=== PATIENT | female | born 1960 | race Caucasian/White ===

== ENCOUNTER → 2018-05-30 12:39 | Outpatient (CLI) | payer OTHER, SELFPAY ==
--- NOTE | 2018-05-30 12:53 | MM_ITS ---
MM Dig screening mamm BI w/CAD ORDERING PHYSICIAN : Prachi Brownlee PATIENT AGE: 57 years GENDER: Female COMPARISON: March 2016, April 2017, March 2015 INDICATION: ITS.REASON: SCREENING no hormones. No new complaints. Noncontributory family history. Previous stereotactic biopsy . Previous benign excisional biopsies right breast 11:00 TECHNIQUE: Standard CC and MLO images were obtained. R2 CAD reviewed. Axillary cc view both breast included FINDINGS: Moderately dense heterogeneous breast pattern, only slightly decreases sensitivity of mammography . With slightly nodular fibroglandular pattern on right appears stable. No significant change since studies dating back to 2013 RIGHT BREAST: . No significant new findings follow up one year recommended . Minimal density at the lateral left breast on cc view is stable LEFT BREAST:. . Focal density retroareolar region on today's MLO view appears to dissipates on other views and less concerning. Given this and Appearance on previous films less concerning can be followed as I believe is merely summation shadow on MLO view.. The other views today appear stable and unremarkable. IMPRESSION: ... Moderately dense breast with no significant new findings. Bilateral follow-up within one year recommended and should be be encouraged BI-RADS Category: 2 Benign Finding(s) RECOMMENDED FOLLOW-UP: 1YR 1 YEAR FOLLOW-UP (A letter has been sent to the patient regarding results of the study.)
== END ==
PROVIDERS: Family Provider Physician Assistant; PCP Family Medicine; Visit Provider Nurse Practitioner Family
DX: Z12.31 Encounter for screening mammogram for malignant neoplasm of breast (principal)
CPT/HCPCS: 77067

== ENCOUNTER → 2019-07-24 07:47 | Outpatient (CLI) | payer OTHER, SELFPAY ==
--- NOTE | 2019-07-24 07:51 | MM_ITS ---
PROCEDURE: MM DIG SCREENING MAMM BI W/CAD CLINICAL INDICATION: SCREENING There is no personal or family history of breast cancer. There has been previous biopsies on each breast for benign disease. COMPARISON: MAMMO SCREENING DIGITAL TOMOSYNTHESIS BILATERAL W CAD from 04/12/2016 MAMMO SCREENING DIGITAL TOMOSYNTHESIS BILATERAL W CAD from 05/16/2017 [facility] MM Dig screening mamm BI w/CAD from 05/30/2018 TECHNIQUE: Standard CC and MLO images were obtained. R2 CAD reviewed. FINDINGS: There is a diffusely dense and heterogenic parenchymal pattern somewhat lessening the sensitivity of mammography. The findings are fairly symmetrical and bilateral. There is a mole marker right breast and there are couple of benign-appearing calcifications right breast. There is a biopsy clip left breast. There is no new or suspicious lesion in either breast and no suspicious microcalcifications. IMPRESSION: Diffusely dense and heterogenic parenchymal pattern with no suspicious lesions seen BI-RAD Category: 2 Benign Finding(s) FOLLOW-UP: 1YR 1 Year Follow-up (A letter has been sent to the patient regarding results of the study.) Dictated by: Dr. Mayo Proctor MD 07/25/2019 14:[address] Mayo Proctor MD in [place] 07/25/2019 14:12
== END ==
PROVIDERS: PCP Family Medicine; Visit Provider Nurse Practitioner Obstetrics & Gynecology
DX: Z12.31 Encounter for screening mammogram for malignant neoplasm of breast (principal)
CPT/HCPCS: 77067

== ENCOUNTER → 2022-08-16 14:40 | Outpatient (CLI) | payer SELFPAY ==
--- NOTE | 2022-08-16 14:43 | MM_ITS ---
PROCEDURE INFORMATION: Exam: MG Bilateral Screening 3D Mammography Exam date and time: 08/16/2022 2:41 PM Age: 61 years old Clinical indication: Screening examination TECHNIQUE: Imaging protocol: Bilateral Screening tomosynthesis and 2D mammography including computer-aided detection (CAD) when performed. COMPARISON: 1. MG MM DIG SCREENING MAMM BI W/CAD 07/24/2019 8:14 AM 2. MG [facility] MM Dig screening mamm BI w/CAD 05/30/2018 1:06 PM FINDINGS: MAMMOGRAPHY: Breast composition: The breasts are heterogeneously dense, which may obscure small masses. Mass: None. Architectural distortion: None. Calcifications: No suspicious calcifications. Asymmetric density: None. Skin thickening: None. Axillary adenopathy: None. IMPRESSION: No mammographic evidence of malignancy. Annual screening is recommended unless otherwise clinically indicated. ASSESSMENT: BI-RADS Category 1: Negative
== END ==
LOC: RAD 14:40
PROVIDERS: PCP Nurse Practitioner Family; Visit Provider Nurse Practitioner Family
DX: Z12.31 Encounter for screening mammogram for malignant neoplasm of breast (principal)
CPT/HCPCS: 77063; 77067

== ENCOUNTER 2022-09-08 12:12 | Inpatient (IN) | payer OTHER, SELFPAY ==
[2022-09-08] VITALS (10 sets, daily range): BP systolic 92–127; BP diastolic 48–69; PULSE 76–112; RESP 16–26; TEMP 36.7–37.8; O2SAT 92–98; BMI 21.0
--- NOTE | 2022-09-08 12:03 | ECG_ITS ---
APPROVED REPORT Exam: Resting ECG HR:105 bpm ECG Measurements Heart Rate 105 AXES MT 138 P 51 QRSd 85 QRS 23 QT 302 T 35 QTc 363 Conclusion SINUS TACHYCARDIA ABNORMAL RHYTHM ECG INTERPRETATION BASED ON A DEFAULT AGE OF 40 YEARS UNCONFIRMED REPORT Electronically signed by : Romario Laguna MD 09/08/2022 16:02:58
--- NOTE | 2022-09-08 12:25 | XR_ITS ---
FINAL REPORT CLINICAL HISTORY: soa/chest tightness COMPARISON: 01/31/2017 FINDINGS: PA and lateral views of the chest were obtained. The cardiac and mediastinal silhouettes are within normal limits. There are new bilateral interstitial opacities which could represent interstitial pulmonary edema or interstitial pneumonia. There is no pleural effusion or pneumothorax. IMPRESSION: Bilateral interstitial opacities could represent interstitial pulmonary edema or interstitial pneumonia. Reviewed, Interpreted and Dictated by Jolanta Aldrich MD Transcribed by Camila Shepard Authenticated and [facility]
[2022-09-08 12:33] LABS: Basophils # 0.3 K/mm3 (0-0.2); Basophils % 1.1 % (0.1-2.0); Eosinophils # 0.2 K/mm3 (0.0-0.4); Hematocrit 37.5 % (37.0-47.0); Hemoglobin 13.1 g/dL (12.2-16.2); Lymphocytes # 1.1 K/mm3 (0.7-4.5); Lymphocytes % 4.5 % (10-50); Mean Corpuscular Hemoglobin 32.4 pg (27.0-31.2); Mean Corpuscular Volume 92.7 fl (81-99); Mean Platelet Volume 8.6 fl (7.4-10.4); Monocytes # 1.3 K/mm3 (0.1-1.0); Monocytes % 5.6 % (1.7-9.3); Neutrophils # 20.7 K/mm3 (1.8-7.8); Neutrophils % 87.8 % (37.0-80.0); Platelet Count 428 K/mm3 (142-424); Red Blood Count 4.04 M/mm3 (4.20-5.40); Red Cell Distribution Width 12.7 % (11.5-17.5); White Blood Count 23.6 K/mm3 (4.8-10.8)
[2022-09-08 12:34] LABS: Chloride 101 mmol/L (98-107); Potassium 3.8 mmoL/L (3.5-5.1); Sodium 136 mmol/L (136-145)
[2022-09-08 12:34] LABS: Coronavirus 19, PCR Not Detected (NotDetected); Influenza A, PCR Not Detected (NotDetected); Influenza B, PCR Not Detected (NotDetected)
[2022-09-08 12:37] LABS: Blood Urea Nitrogen 8 mg/dl (7-17); Creatinine Clearance Estimated 50 mL/min (50-200); Estimated Glomerular Filt Rate 101 ml/min (>60); GFR (African American) 123 ML/MIN (>60)
[2022-09-08 12:38] LABS: Anion Gap 8.8 mEq/L (5-15); Calcium 9.1 mg/dl (8.4-10.2); Carbon Dioxide 30 mmol/L (22.0-30.0); Glucose 126 mg/dl (74-100); MANUAL DIFFERENTIAL MANUAL DIFFERENTIAL (MANUAL DIFF)
--- NOTE | 2022-09-08 12:42 | PC.NURSE ---
pt back from rad
[2022-09-08 12:47] LABS: Lactic Acid 1.1 mmol/L (0.7-2.1)
[2022-09-08 12:52] LABS: Troponin I < 0.01 ng/ml (0.00-0.034)
--- NOTE | 2022-09-08 13:08 | HMH.EDGENADL ---
Discharge Plan Disposition Patient Disposition: Admitted as Observation Condition: Fair Clinical Impressions Clinical Impression: Bilateral pneumonia, Sepsis Discharge ED Provider: Fady Cedillo General Adult HPI General Chief complaint: Chest Pain Stated complaint: soa Time Seen by Provider: 09/08/22 12:50 Mode of Arrival: Ambulatory Source of Information: Patient Limitations: No Limitations Description of Symptoms (Recalled from ER Triage Doc. by RN): c/o soa with chest tightness and no energy for 2 weeks. States that she has been sick for 2 weeks and tx for bronchitis. Prior to arrival pt started coughing and got soa with chest tightness. Chest tightness has resolved. History of Present Illness HPI narrative: Patient states she has been sick for 2 weeks. She says that she saw her primary care provider 08/22 who diagnosed her with pneumonia. No chest x-ray performed. She was tested for flu, COVID, and RSV and was negative. She was treated with a Z-Mauro, albuterol inhaler, steroid shot. Initially she improved but has now gotten worse again. States she feels terrible, feels like a truck has hit her. States she has not been as sick in 10 years. She has a cough, shortness of breath, and developed chest pain today with coughing. She has a fever. She denies rhinorrhea or sore throat. Denies vomiting or diarrhea. No current body aches, but had body aches a couple of weeks ago when the illness started. She is a non-smoker. No chronic heart or lung problems. 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 Related Data Home Medications Medication Instructions Recorded Confirmed albuterol sulfate 90 mcg/actuation 2 puff inhalation Q4HP PRN 09/08/22 09/08/22 aerosol inhaler Shortness Of Breath bupropion HCl 150 mg 24 hr tablet, 150 mg PO DAILY MOOD 09/08/22 09/08/22 extended release Allergies Allergy/AdvReac Type Severity Reaction Status Date / Time No Known Allergies Allergy Unverified 09/08/22 13:01 [facility] Disclaimer: The information contained in this section may have been updated after the patient was seen, as this information can be updated by other users. Medical History (Updated 09/08/22 @ 14:16 by Ricardo Lizarraga MD) Generalized anxiety disorder Surgical History (Updated 09/08/22 @ 14:16 by Ricardo Lizarraga MD) History of arthroscopy of left knee History of bilateral tubal ligation History of colonoscopy Family History (Updated 09/08/22 @ 14:17 by Ricardo Lizarraga MD) Mother Lung cancer Father Coronary artery disease Diabetes Social History (Updated 09/08/22 @ 14:18 by Ricardo Lizarraga MD) Smoking Status: Never smoker alcohol intake: never current occupational status: employed and other Travel in the last 8 weeks: [place] the [place] household members: spouse housing: house marital status: number of children: 3 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 [employer] abrahan/scientology: Confucianism ROS Obtained: Yes Systems reviewed as appropriate & no additional complaints except as documented Constitutional Constitutional: Denies body ache, Reports fever(s), Denies headache(s) and Denies weakness ENT Ears, Nose, Mouth, and Throat: Denies headache(s), Denies nasal discharge and Denies sore throat Cardiovascular Cardiovascular: Reports chest pain Respiratory Respiratory: Reports shortness of breath and Reports cough Gastrointestinal Gastrointestingal: Denies abdominal pain, constipation, diarrhea or vomiting Genitourinary Female Genitourinary: Denies difficulty voiding, Denies dysuria and Denies flank pain Musculoskeletal Musculoskeletal: Denies numbness Neurologic Neurologic: Denies headache(s), Denies numbness and Denies weakness Physical Exam General General appearance: alert and in no apparent distress Head Head exam: atraumatic and normocephalic Eye
[2022-09-08 13:29] LABS: Eosinophils % 1 % (0-3); Lymphocytes % 9 % (10-50); Monocytes % 6 % (2-9); Neutrophils % 84 % (42-76); Platelet Estimate Slight Increase; RBC Morphology Normal; Total Cells Counted 100
--- NOTE | 2022-09-08 13:54 | HMH.PHAINT1 ---
Pharmacy Intervention Comments: MEDICATION RECONCILIATION COMPLETED ON PATIENT USING EXTERNAL FILL HISTORY FROM PHARMACY. -JOBY WORTHY, JACKD
--- NOTE | 2022-09-08 14:05 | PC.NURSE ---
pt in bed resting, nothing was needed at this time, family in room
[2022-09-08 14:10] LABS: Magnesium 1.9 mg/dl (1.6-2.3)
--- NOTE | 2022-09-08 14:11 | EXP.HP ---
History of Present Illness *Admission Date: 09/08/22 *Reason for visit:: Chief complaint: Shortness of air *History of present illness: This is a 62-year-old female that presents to [facility] emergency department with concerns of shortness of air over several days. She reports 2 weeks ago seen her PCP with a cough and treated with azithromycin for presumed pneumonia. After her antibiotic therapy she started feeling well but over the last week she has identified increased cough with initial purulent production but now it is nonproductive. She has identified no associated hemoptysis, nausea, vomiting or diarrhea. She has not identified any rashes or mental status changes. She reports over the last 48 hours increasing cough with coughing spasms causing intermittent chest pain with coughing. She reports the pain resolves after her coughing improves. She has identified shortness of air with exertion especially when going up steps. She describes associated subjective fever and chills. In the ED her presenting temperature was 100.1 with tachypnea and tachycardia. Her CBC identifies a leukocytoses and her chest x-ray is consistent with an infiltrate. Blood cultures have been acquired and she has been started on broad-spectrum antibiotic therapy. Her ECG identifies sinus tachycardia and her troponin is negative. [facility] Medical History (Updated 09/08/22 @ 14:16 by Ricardo Lizarraga MD) Generalized anxiety disorder Surgical History (Updated 09/08/22 @ 14:16 by Ricardo Lizarraga MD) History of arthroscopy of left knee History of bilateral tubal ligation History of colonoscopy Family History (Updated 09/08/22 @ 14:17 by Ricardo Lizarraga MD) Mother Lung cancer Father Coronary artery disease Diabetes Social History (Updated 09/08/22 @ 14:18 by Ricardo Lizarraga MD) Smoking Status: Never smoker alcohol intake: never current occupational status: employed and other Travel in the last 8 weeks: [place] the [place] household members: spouse housing: house marital status: number of children: 3 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 [employer] abrahan/orthodoxy: Zoroastrian Review of Systems Review of Systems Review of systems:: pertinent systems reviewed and negative unless documented below Constitutional Constitutional: Reports chills and Reports fever(s) *Cardiovascular Cardiovascular: Reports dyspnea and Reports dyspnea on exertion *Respiratory Respiratory: Reports chest congestion, Reports cough, Reports dyspnea, Reports dyspnea on exertion and Denies hemoptysis *Gastrointestinal Gastrointestinal: Denies nausea and Denies vomiting *Musculoskeletal Musculoskeletal: Denies numbness *Neurologic Neurologic: Denies numbness Meds Home Medications and Allergies Home Medications Medication Instructions Recorded Confirmed Type albuterol sulfate 90 mcg/actuation 2 puff inhalation Q4HP PRN 09/08/22 09/08/22 History aerosol inhaler Shortness Of Breath bupropion HCl 150 mg 24 hr tablet, 150 mg PO DAILY MOOD 09/08/22 09/08/22 History extended release New Prescriptions to Start Prescriptions: Allergies Allergy/AdvReac Type Severity Reaction Status Date / Time No Known Allergies Allergy Unverified 09/08/22 13:01 Exam Data for Last 24 hours Vital signs and Labs for Last 24 Hours: Temp Pulse Resp BP Pulse Ox 100.1 F H 107 H 26 H 121/69 96 09/08/22 12:12 09/08/22 12:12 09/08/22 12:12 09/08/22 12:12 09/08/22 12:12 Laboratory Results - last 24 hr 09/08/22 12:15: SARS-CoV-2 (PCR) Not detected, Influenza A Untype (PCR) Not detected, Influenza Type B (PCR) Not detected 09/08/22 12:19: WBC 23.6 H*, RBC 4.04 L, Hgb 13.1, Hct 37.5, MCV 92.7, MCH 32.4 H, MCHC 35.0, RDW 12.7, Plt Count 428 H, MPV 8.6, Neut % (Auto) 87.8 H, Lymph % (Auto) 4.5 L, [place] % (Auto) 5.6, Eos % (Auto) 1.0, Baso % (Auto) 1.1, Neut # (Auto) 20.7 H, Lym
--- NOTE | 2022-09-08 14:47 | PC.NURSE ---
pt in bed sleeping, nothing needed at this time
--- NOTE | 2022-09-08 14:51 | PC.NURSE ---
report called to Blanca PACHECO
--- NOTE | 2022-09-08 14:55 | PC.NURSE ---
patient came to floor by wheelchair from ED
--- NOTE | 2022-09-08 15:52 | PC.NURSE ---
tech note; notified nurse of low blood pressure for 1600 vital signs.
[2022-09-08 16:28] LABS: Troponin I < 0.01 ng/ml (0.00-0.034)
--- NOTE | 2022-09-08 19:05 | PC.NURSE ---
notified nedra about pt's manual bp 92/52. 500 ml ivf bolus ordered.
[2022-09-08 19:36] LABS: Troponin I < 0.01 ng/ml (0.00-0.034)
[2022-09-09] VITALS: BP 98/48; PULSE 74; RESP 16; TEMP 36.9; O2SAT 99
[2022-09-09 04:00] VITALS: BP 112/60; PULSE 80; RESP 24; TEMP 37; O2SAT 94; BMI 20.5
--- NOTE | 2022-09-09 05:08 | PC.NURSE ---
NO ACUTE CHANGES SINCE PREVIOUS ASSESSMENT. HAS RESTED WELL THIS SHIFT. LUNG SOUNDS REMAIN DIMINISHED WITH FINE CRACKLES. REMAINS ON 2L NASAL CANNULA AND IS TOLERATING WELL. PT'S BP HAS BEEN SOFT THIS SHIFT AND PT HAS RECEIVED TWO 500ML BOLUSES. TOLERATED WELL. BP IS NOW 112/60. NO C/O PIAN, N/V/D, OR SOB THIS SHIFT.
[2022-09-09 05:43] LABS: Microscopic, Urine URINE MICROSCOPIC (MICROSCOPIC)
[2022-09-09 05:44] LABS: Appearance,Urine CLEAR (Clear); Bilirubin,Urine Negative (Negative); Blood, Urine Negative (Negative); Color,Urine YELLOW (Yellow); Glucose,Urine (UA) Negative (Negative); Ketones,Urine Negative (Negative); Leukocyte Esterase,Urine TRACE (Negative); Nitrate,Urine Negative (Negative); Protein,Urine Negative (Negative); Specific Gravity, Urine 1.025 (1.005-1.030); Urobilinogen,Urine 0.2 EU/dl (0.2)
[2022-09-09 05:48] LABS: Squamous Epithelial Cell,Urine Occasional #/hpf (0-5)
[2022-09-09 06:33] VITALS: PULSE 85; PULSE 87; O2SAT 98
[2022-09-09 07:26] LABS: Basophils # 0.1 K/mm3 (0-0.2); Basophils % 2.3 % (0.1-2.0); Eosinophils # 0.1 K/mm3 (0.0-0.4); Eosinophils % 1.4 % (0.1-12.0); Lymphocytes # 2.1 K/mm3 (0.7-4.5); Lymphocytes % 35.1 % (10-50); Mean Corpuscular HGB Conc 31.9 g/dL (31.8-35.4); Mean Corpuscular Hemoglobin 30.6 pg (27.0-31.2); Mean Platelet Volume 8.7 fl (7.4-10.4); Monocytes # 0.3 K/mm3 (0.1-1.0); Monocytes % 5.6 % (1.7-9.3); Neutrophils # 3.3 K/mm3 (1.8-7.8); Neutrophils % 55.6 % (37.0-80.0); Platelet Count 324 K/mm3 (142-424); Red Blood Count 3.54 M/mm3 (4.20-5.40); Red Cell Distribution Width 12.5 % (11.5-17.5)
[2022-09-09 07:34] LABS: Anion Gap 10.6 mEq/L (5-15); Blood Urea Nitrogen 6 mg/dl (7-17); Calcium 8.3 mg/dl (8.4-10.2); Carbon Dioxide 25 mmol/L (22.0-30.0); Chloride 109 mmol/L (98-107); Creatinine Clearance Estimated 48 mL/min (50-200); Estimated Glomerular Filt Rate 125 ml/min (>60); GFR (African American) 151 ML/MIN (>60); Glucose 122 mg/dl (74-100); Potassium 3.6 mmoL/L (3.5-5.1); Sodium 141 mmol/L (136-145)
[2022-09-09 07:51] LABS: Procalcitonin 0.211 ng/mL (0.0-2.0)
[2022-09-09 07:54] LABS: Hemoglobin 10.9 g/dL (12.2-16.2)
[2022-09-09 08:00] VITALS: BP 100/47; PULSE 111; RESP 18; TEMP 36.6; O2SAT 92
--- NOTE | 2022-09-09 08:42 | EXP.DC.SUM ---
General Admission date:: 09/08/22 Discharge date: 09/09/22 HPI HPI HPI: This is a 62-year-old female that presents to [facility] emergency department with concerns of shortness of air over several days. She reports 2 weeks ago seen her PCP with a cough and treated with azithromycin for presumed pneumonia. After her antibiotic therapy she started feeling well but over the last week she has identified increased cough with initial purulent production but now it is nonproductive. She has identified no associated hemoptysis, nausea, vomiting or diarrhea. She has not identified any rashes or mental status changes. She reports over the last 48 hours increasing cough with coughing spasms causing intermittent chest pain with coughing. She reports the pain resolves after her coughing improves. She has identified shortness of air with exertion especially when going up steps. She describes associated subjective fever and chills. In the ED her presenting temperature was 100.1 with tachypnea and tachycardia. Her CBC identifies a leukocytoses and her chest x-ray is consistent with an infiltrate. Blood cultures have been acquired and she has been started on broad-spectrum antibiotic therapy. Her ECG identifies sinus tachycardia and her troponin is negative. Hospital Course Hospital Course Hospital Course: The patient was admitted to the medical floor with oxygen supplementation to maintain appropriate oxygen saturations. Blood cultures were acquired and she was maintained on IV antibiotic coverage. Her laboratory studies and inflammatory markers were trended. Her CBC identified improved leukocytoses with a normal white blood cell count on discharge. Her procalcitonin on discharge was normal. She saturated appropriately on room air and identified significant improvement. She inquired about discharge home. We will discharge her home on oral antibiotics and she is instructed to follow-up with her PCP in 1 week. Exam Data for Last 24 hours Vital signs and Labs for Last 24 Hours: Temp Pulse Resp BP Pulse Ox 97.8 F 111 H 18 100/47 L 92 L 09/09/22 08:00 09/09/22 08:00 09/09/22 08:00 09/09/22 08:00 09/09/22 08:00 Laboratory Results - last 24 hr 09/08/22 12:15: SARS-CoV-2 (PCR) Not detected, Influenza A Untype (PCR) Not detected, Influenza Type B (PCR) Not detected 09/08/22 12:19: WBC 23.6 H*, RBC 4.04 L, Hgb 13.1, Hct 37.5, MCV 92.7, MCH 32.4 H, MCHC 35.0, RDW 12.7, Plt Count 428 H, MPV 8.6, Neut % (Auto) 87.8 H, Lymph % (Auto) 4.5 L, [place] % (Auto) 5.6, Eos % (Auto) 1.0, Baso % (Auto) 1.1, Neut # (Auto) 20.7 H, Lymph # (Auto) 1.1, [place] # (Auto) 1.3 H, Eos # (Auto) 0.2, Baso # (Auto) 0.3 H, Total Counted 100, Neutrophils % (Manual) 84 H, Lymphocytes % (Manual) 9 L, Monocytes % (Manual) 6, Eosinophils % (Manual) 1, Platelet Estimate Slight increase, RBC Morphology Normal 09/08/22 12:19: Sodium 136, Potassium 3.8, Chloride 101, Carbon Dioxide 30, Anion Gap 8.8, BUN 8, Creatinine 0.60, Estimated Creat Clear 50, Estimated GFR 101, Est GFR ( Amer) 123, Glucose 126 H, Calcium 9.1, Troponin I < 0.01 09/08/22 12:19: Lactate 1.1 09/08/22 12:19: Magnesium 1.9 09/08/22 15:50: Troponin I < 0.01 09/08/22 18:39: Troponin I < 0.01 09/09/22 05:35: Urine Color Yellow, Urine Appearance Clear, Urine pH 6.0, Ur Specific [place] 1.025, Urine Protein Negative, Urine Glucose (UA) Negative, Urine Ketones Negative, Urine Blood Negative, Urine Nitrate Negative, Urine Bilirubin Negative, Urine Urobilinogen 0.2, Ur Leukocyte Esterase Trace, Urine WBC 10-20, Ur Squamous Epith Cells Occasional 09/09/22 07:18: WBC 6.0 D, RBC 3.54 L, Hgb 10.9 L D, Hct 34.0 L, MCV 96.0, MCH 30.6, MCHC 31.9, RDW 12.5, Plt Count 324, MPV 8.7, Neut % (Auto) 55.6, Lymph % (Auto) 35.1, [place] % (Auto) 5.6, Eos % (Auto) 1.4, Baso % (Auto) 2.3 H, Neut # (Auto) 3.3, Lymph # (Auto) 2.1, [place] # (Auto) 0.3, Eos # (Auto) 0.1, Baso # (Auto) 0.1 09/09/22 07:18: Sodium 141, Potassium 3.6, Chlo
--- NOTE | 2022-09-11 13:32 | CARE MANAGER ---
Contacted patient related to hospital discharge. She states she is doing better. She picked up her medication and made a follow up appointment. Denies questions or concerns. JUNIOR Wilde
[2022-09-12 18:04] LABS: Legionella pneumophila Urinary Negative (Negative)
[2022-09-13 17:26] LABS: Body Fluid Culture, Sterile Not indicated. (.); Organism ID Not indicated. (.); Specimen Source Urine (.); Streptococcus pneumoniae Ag Negative (Negative)
== END 2022-09-09 09:35 | disposition home or self-care (01) | DRG 871 ==
LOC: ER 13:12 → 2ND 14:35
PROVIDERS: Admitting Provider Family Medicine; Emergency Provider Emergency Medicine; Visit Provider Family Medicine
DX: A41.9 Sepsis, unspecified organism (principal); J18.9 Pneumonia, unspecified organism; F41.1 Generalized anxiety disorder
CPT/HCPCS: 36415; 71046; 80048; 81001; 83605; 83735; 84145; 84484; 85007; 85025; 87040; 87086; 87899; 93005; 94640; 94760; 99285; C9803; J0456; J0696; U0003; U0005

== ENCOUNTER → 2022-10-03 07:59 | Outpatient (CLI) | payer OTHER, SELFPAY ==
[2022-10-03 08:30] VITALS: PULSE 74; PULSE 77
== END ==
PROVIDERS: PCP Nurse Practitioner Family; Visit Provider Nurse Practitioner Family
DX: R06.00 Dyspnea, unspecified (principal)
CPT/HCPCS: 94060; 94640; 94727; 94729

== ENCOUNTER → 2023-06-28 08:11 | Outpatient (CLI) | payer SELFPAY ==
--- NOTE | 2023-06-28 08:24 | MM_ITS ---
PROCEDURE INFORMATION: Exam: MG Bilateral Screening 3D Mammography Exam date and time: 06/28/2023 8:12 AM Age: 62 years old Clinical indication: Screening examination TECHNIQUE: Imaging protocol: Bilateral Screening tomosynthesis and 2D mammography including computer-aided detection (CAD) when performed. COMPARISON: 1. MG MM DIG SCREENING MAMM BI W/CAD 08/16/2022 2:41 PM 2. MG MM DIG SCREENING MAMM BI W/CAD 07/24/2019 8:14 AM FINDINGS: MAMMOGRAPHY: Breast composition: The breasts are heterogeneously dense, which may obscure small masses. Mass: None. Architectural distortion: None. Calcifications: No suspicious calcifications. Asymmetric density: None. Skin thickening: None. Axillary adenopathy: None. IMPRESSION: No mammographic evidence of malignancy. Annual screening is recommended unless otherwise clinically indicated. ASSESSMENT: BI-RADS Category 1: Negative
== END ==
PROVIDERS: PCP Nurse Practitioner Family; Visit Provider Nurse Practitioner Family
DX: Z12.31 Encounter for screening mammogram for malignant neoplasm of breast (principal)
CPT/HCPCS: 77063; 77067

== ENCOUNTER 2024-04-13 13:31 | Inpatient (IN) | payer SELFPAY ==
[2024-04-13 13:31] VITALS: BP 137/77; PULSE 85; RESP 25; TEMP 36.6; O2SAT 100; BMI 21.4
--- NOTE | 2024-04-13 13:32 | ECG_ITS ---
APPROVED REPORT Exam: Resting ECG HR:81 bpm ECG Measurements Heart Rate 81 AXES AZ 135 P 40 QRSd 90 QRS 57 QT 339 T 61 QTc 376 Conclusion Sinus rhythm Occasional PVCs Electronically signed by : MATT RASMUSSEN, 04/13/2024 19:51:24
--- NOTE | 2024-04-13 13:45 | XR_ITS ---
PROCEDURE INFORMATION: Exam: XR Chest Exam date and time: 04/13/2024 1:46 PM Age: 63 years old Clinical indication: Dyspnea TECHNIQUE: Imaging protocol: Radiologic exam of the chest. Views: 1 view. COMPARISON: CR XR CHEST 2V 09/08/2022 12:30 PM FINDINGS: Lungs: Unremarkable. No consolidation. Pleural spaces: Unremarkable. No pleural effusion. No pneumothorax. Heart/Mediastinum: Unremarkable. No cardiomegaly. Bones/joints: Unremarkable. IMPRESSION: No acute findings.
--- NOTE | 2024-04-13 13:49 | HMH.EDCP ---
Discharge Plan Disposition Patient Disposition: Admitted Chief Complaint: Chest Pain Prescriptions Prescriptions: No Action albuterol sulfate 90 mcg/actuation HFA aerosol inhaler 2 puff INHALATION Q4HP PRN (Reason: Shortness Of Breath) Patient Comments: INHALE 2 PUFFS BY MOUTH EVERY 4 HOURS NEEDED FOR COUGH OR WHEEZING bupropion HCl 150 mg tablet extended release 24 hr 150 mg PO DAILY Patient Comments: TAKE 1 TABLET BY MOUTH ONCE DAILY doxycycline hyclate 100 mg Tablet 100 mg PO Q12H Qty: 20 0RF Referrals Follow up/Referrals: Serge Roper MD [Staff Physician] - See instructions Clinical Impressions Clinical Impression: Non-ST elevation [place] (NSTEMI) Print Language Print Language: Kyrgyz Discharge ED Provider: Jolene Silva HPI General Chief Complaint: Chest Pain Stated Complaint: chest pain Time Seen by Provider: 04/13/24 13:38 History of Present Illness HPI narrative: Patient is a 63-year-old female presenting with chest pain. Her daughter was just admitted in the hospital just a few minutes ago for severe sepsis and she was upstairs and stated that she started to have chest pain about 1 hour prior to the ED evaluation. Pain is nonexertional nonradiating not associated with dyspnea or diaphoresis. No history of coronary disease. She had a stress test 5 years ago which was unremarkable has never had an [place] or any type of cardiopulmonary disease in the past. Patient states she has had severe anxiety and stress in addition to her daughter being admitted for sepsis she has a grandchild who is recently symptoms and is in residential and all that happened this week. Related Data Home Medications ?Medication ?Instructions ?Recorded ?Confirmed albuterol sulfate 90 mcg/actuation 2 puff inhalation Q4HP PRN 09/08/22 09/08/22 aerosol inhaler Shortness Of Breath bupropion HCl 150 mg 24 hr tablet, 150 mg PO DAILY MOOD 09/08/22 09/08/22 extended release Previous Rx's ?Medication ?Instructions ?Recorded doxycycline hyclate 100 mg tablet 100 mg PO Q12H #20 tabs 09/09/22 Allergies Allergy/AdvReac Type Severity Reaction Status Date / Time No Known Allergies Allergy Unverified 09/08/22 13:01 [facility] Disclaimer: The information contained in this section may have been updated after the patient was seen, as this information can be updated by other users. 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 [employer] abrahan/synagogue: Cheondoism ROS Obtained: Yes All systems reviewed & no additional complaints except as documented Physical Exam General General appearance: anxious (Tearful telling the story about her granddaughter) Respiratory Respiratory exam: Present normal lung sounds bilaterally; Absent respiratory distress Cardiovascular Cardiovascular exam: Present regular rate and normal rhythm Abdominal Exam Abdominal exam: Present soft; Absent distention or tenderness Neurological Exam Neurological exam: Present alert and oriented X3 HEART Score HEART Score HEART Score assessment performed?: Yes History (anamnesis): Slightly suspicious ECG: Non-specific disturbance Age: 45-65 years Risk factors: No known risk facto
[2024-04-13 13:54] LABS: Chloride 105 mmol/L (98-107)
[2024-04-13 13:55] LABS: Albumin Level 4.7 g/dl (3.5-5.0); Potassium 4.1 mmoL/L (3.5-5.1); Sodium 139 mmol/L (136-145)
[2024-04-13 13:58] LABS: Alanine Aminotransferase 22 U/L (12-78); Albumin/Globulin Ratio 1.3 (1.1-1.8); Alkaline Phosphatase 113 U/L (38-126); Anion Gap 9.1 mEq/L (5-15); Aspartate Amino Transferase 41 U/L (14-36); Bilirubin,Total 0.7 mg/dl (0.2-1.3); Blood Urea Nitrogen 13 mg/dl (7-17); Carbon Dioxide 29 mmol/L (22.0-30.0); Creatinine Clearance Estimated 52 mL/min (50-200); Estimated Glomerular Filt Rate 101 ml/min (>60); GFR (African American) 122 ML/MIN (>60); Globulin 3.6 g/dL (1.3-3.2); Total Protein,Serum 8.3 g/dl (6.3-8.2)
[2024-04-13 13:59] LABS: Calcium 9.7 mg/dl (8.4-10.2); Glucose 98 mg/dl (74-100)
[2024-04-13 14:04] LABS: Basophils # 0.2 K/mm3 (0-0.2); Eosinophils # 0.1 K/mm3 (0.0-0.4); Eosinophils % 1.2 % (0.1-12.0); Hematocrit 44.1 % (37.0-47.0); Hemoglobin 14.1 g/dL (12.2-16.2); Lymphocytes # 3.4 K/mm3 (0.7-4.5); Lymphocytes % 34.9 % (10-50); Mean Corpuscular HGB Conc 31.9 g/dL (31.8-35.4); Mean Corpuscular Hemoglobin 31.3 pg (27.0-31.2); Mean Corpuscular Volume 98.3 fl (81-99); Mean Platelet Volume 8.7 fl (7.4-10.4); Monocytes # 0.7 K/mm3 (0.1-1.0); Monocytes % 7.5 % (1.7-9.3); Neutrophils # 5.4 K/mm3 (1.8-7.8); Neutrophils % 54.3 % (37.0-80.0); Platelet Count 281 K/mm3 (142-424); Red Blood Count 4.49 M/mm3 (4.20-5.40); Red Cell Distribution Width 13.9 % (11.5-17.5); White Blood Count 9.9 K/mm3 (4.8-10.8)
[2024-04-13 14:12] LABS: Troponin I 0.96 ng/ml (0.00-0.034)
--- NOTE | 2024-04-13 14:19 | PC.NURSE ---
Dr. Silva s/w Dr. Hansen for NSTEMI admission
--- NOTE | 2024-04-13 14:25 | PC.NURSE ---
supervisor keymodule assembly notified for admission
--- NOTE | 2024-04-13 14:29 | PC.NURSE ---
PT ADMITTED ROOM 212, ALL STAFF NOTIFIED
--- NOTE | 2024-04-13 14:34 | PC.NURSE ---
report called to Alisha
[2024-04-13 14:38] VITALS: BP 109/66; PULSE 81; RESP 18; TEMP 36.8; O2SAT 93
[2024-04-13 14:57] VITALS: BP 111/67; PULSE 73; RESP 17; O2SAT 98; BMI 22.6
[2024-04-13 15:00] VITALS: RESP 20; O2SAT 99
[2024-04-13 15:03] LABS: D-Dimer < 0.25 ug/mL (0.0-0.5)
[2024-04-13 15:39] LABS: Troponin I 0.95 ng/ml (0.00-0.034)
[2024-04-13 16:00] VITALS: BP 97/58; PULSE 69; PULSE 70; RESP 18; TEMP 36.3; O2SAT 95
--- NOTE | 2024-04-13 16:41 | EXP.HP ---
History of Present Illness *Admission Date: 04/13/24 *Reason for visit:: chest pain *History of present illness: Patient is a 53-year-old female with past medical history of generalized anxiety disorder who presents to the hospital due to chest pain. Reportedly patient has been having significant stress due to family and home situation, started having pain, substernal, nonradiating associated with anxiety. According to the patient she was visiting her daughter in the hospital and while in the hospital she started having chest pains. Patient otherwise denied fever chills diarrhea constipation dysuria. [facility] Disclaimer: The information contained in this section may have been updated after the patient was seen, as this information can be updated by other users. 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 [employer] abrahan/yarsanism: Confucianist Review of Systems Review of Systems Review of systems:: pertinent systems reviewed and negative unless documented below Meds Home Medications and Allergies Home Medications ?Medication ?Instructions ?Recorded ?Confirmed ?Type bupropion HCl 150 mg tablet,12 hr 150 mg PO DAILY 04/13/24 04/13/24 History sustained-release (Wellbutrin SR) fluticasone propionate 110 1 puff inhalation BID 04/13/24 04/13/24 History mcg/actuation HFA aerosol inhaler New Prescriptions to Start Prescriptions: Allergies Allergy/AdvReac Type Severity Reaction Status Date / Time No Known Allergies Allergy Verified 04/13/24 14:56 Exam Data for Last 24 hours Vital signs and Labs for Last 24 Hours: Temp Pulse Resp BP Pulse Ox O2 Del Method 98.2 F 73 17 111/67 98 Room Air 04/13/24 14:38 04/13/24 14:57 04/13/24 14:57 04/13/24 14:57 04/13/24 14:57 04/13/24 15:00 Laboratory Results - last 24 hr 04/13/24 13:35: WBC 9.9, RBC 4.49, Hgb 14.1, Hct 44.1, MCV 98.3, MCH 31.3 H, MCHC 31.9, RDW 13.9, Plt Count 281, MPV 8.7, Neut % (Auto) 54.3, Lymph % (Auto) 34.9, [place] % (Auto) 7.5, Eos % (Auto) 1.2, Baso % (Auto) 2.0, Neut # (Auto) 5.4, Lymph # (Auto) 3.4, [place] # (Auto) 0.7, Eos # (Auto) 0.1, Baso # (Auto) 0.2, D-Dimer < 0.25, Sodium 139, Potassium 4.1, Chloride 105, Carbon Dioxide 29, Anion Gap 9.1, BUN 13, Creatinine 0.60, Estimated Creat Clear 52, Estimated GFR 101, Est GFR ( Amer) 122, Glucose 98, Calcium 9.7, Total Bilirubin 0.7, AST 41 H, ALT 22, Alkaline Phosphatase 113, Troponin I 0.96 H 04/13/24 13:35: Troponin I 0.95 H, Total Protein 8.3 H, Albumin 4.7, Globulin 3.6 H, Albumin/Globulin Ratio 1.3 I & O for Last 24 hours: Intake & Output 04/10/24 04/11/24 04/12/24 04/13/24 23:59 23:59 23:59 23:59 Intake Total 0 / 0 Output Total 0 / 0 Balance 0 / 0 Weight 59.959 kg Constitutional Constitutional: no acute distress *Routine HEENT Exam Head: Present normocephalic Eye: Present EOMI and PERRL ENT: Present mucous membranes moist *Routine Neck Exam Neck: Present supple; Absent lymphadenopathy *Routine Respiratory Exam Respiratory: Present CTA bilaterally *Routine Cardiovascular Exam Cardiovascular: Present RRR *Routine Abdominal Exam Abdominal: Present soft and normoactive bowel sounds; A
[2024-04-13 18:03] LABS: Troponin I 1.87 ng/ml (0.00-0.034)
--- NOTE | 2024-04-13 18:19 | ECG_ITS ---
APPROVED REPORT Exam: Resting ECG HR:81 bpm ECG Measurements Heart Rate 81 AXES HI 140 P 38 QRSd 93 QRS 26 QT 379 T 62 QTc 416 Conclusion Sinus rhythm, occasional PVCs Electronically signed by : MATT RASMUSSEN, 04/13/2024 19:53:26
--- NOTE | 2024-04-13 18:30 | EXP.CARD.CON ---
History of Present Illness History of Present Illness Consult date: 04/13/24 Requesting physician: Bruce Hansen Consult reason: chest pain Chief complaint: Chest pain History of present illness: This is a 63-year-old white female who denies past medical history who presented to emergency department with complaints of midsternal chest pressure with mild shortness of breath. Patient reports has been having intermittent symptoms off and on for a while exacerbated with activity better with rest. Reports today was in the hospital with daughter who is currently inpatient when developed symptoms that were worse than prior. Patient went to the emergency department for further evaluation. EKG shows normal sinus rhythm without acute ischemic changes noted. Chest x-ray was negative for acute process. Labs were as follow: WBC 9.9, hemoglobin 14.1, D-dimer negative, sodium 139, potassium 4.1, creatinine 0.6, troponin 0.95 trending up to 1.87. Patient was given nitroglycerin which did help with pain. A repeat EKG after second troponin shows no acute ischemic changes/STEMI noted. Patient is resting comfortably on exam denies chest pain currently. [facility] Disclaimer: The information contained in this section may have been updated after the patient was seen, as this information can be updated by other users. 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 [employer] abrahan/restorationism: [employer] Review of Systems *Cardiovascular Cardiovascular: Reports chest pain and Reports dyspnea *Respiratory Respiratory: Reports dyspnea Exam Data for Last 24 hours Vital signs and Labs for Last 24 Hours: Temp Pulse Resp BP Pulse Ox O2 Del Method 97.4 F L 69 18 97/58 L 95 Room Air 04/13/24 16:00 04/13/24 16:00 04/13/24 16:00 04/13/24 16:00 04/13/24 16:00 04/13/24 17:00 Laboratory Results - last 24 hr 04/13/24 13:35: WBC 9.9, RBC 4.49, Hgb 14.1, Hct 44.1, MCV 98.3, MCH 31.3 H, MCHC 31.9, RDW 13.9, Plt Count 281, MPV 8.7, Neut % (Auto) 54.3, Lymph % (Auto) 34.9, [place] % (Auto) 7.5, Eos % (Auto) 1.2, Baso % (Auto) 2.0, Neut # (Auto) 5.4, Lymph # (Auto) 3.4, [place] # (Auto) 0.7, Eos # (Auto) 0.1, Baso # (Auto) 0.2, D-Dimer < 0.25, Sodium 139, Potassium 4.1, Chloride 105, Carbon Dioxide 29, Anion Gap 9.1, BUN 13, Creatinine 0.60, Estimated Creat Clear 52, Estimated GFR 101, Est GFR ( Amer) 122, Glucose 98, Calcium 9.7, Total Bilirubin 0.7, AST 41 H, ALT 22, Alkaline Phosphatase 113, Troponin I 0.96 H 04/13/24 13:35: Troponin I 0.95 H, Total Protein 8.3 H, Albumin 4.7, Globulin 3.6 H, Albumin/Globulin Ratio 1.3 04/13/24 17:15: Troponin I 1.87 H I & O for Last 24 hours: Intake & Output 04/10/24 04/11/24 04/12/24 04/13/24 23:59 23:59 23:59 23:59 Intake Total 0 / 0 Output Total 0 / 0 Balance 0 / 0 Weight 132 lb 3 oz Constitutional Constitutional: no acute distress *Routine Respiratory Exam Respiratory: Present CTA bilaterally and symmetric chest movement *Routine Cardiovascular Exam Cardiovascular: Present RRR, Normal S1 and Normal S2 *Routine Abdominal Exam Abdominal: Present soft and normoactive bowel sounds; Absent tenderness *Routine Extremities Exam Extremities: Present f
[2024-04-13 19:27] LABS: Basophils # 0.1 K/mm3 (0-0.2); Eosinophils # 0.1 K/mm3 (0.0-0.4); Eosinophils % 1.3 % (0.1-12.0); Mean Corpuscular Volume 101.4 fl (81-99); Mean Platelet Volume 8.8 fl (7.4-10.4); Monocytes # 0.6 K/mm3 (0.1-1.0); Neutrophils # 4.4 K/mm3 (1.8-7.8)
[2024-04-13 19:29] LABS: Basophils % 1.5 % (0.1-2.0); Hematocrit 36.8 % (37.0-47.0); Lymphocytes # 2.4 K/mm3 (0.7-4.5); Lymphocytes % 31.5 % (10-50); Mean Corpuscular HGB Conc 32.9 g/dL (31.8-35.4); Mean Corpuscular Hemoglobin 33.4 pg (27.0-31.2); Monocytes % 8.2 % (1.7-9.3); Neutrophils % 57.5 % (37.0-80.0); Platelet Count 220 K/mm3 (142-424); Red Blood Count 3.63 M/mm3 (4.20-5.40); Red Cell Distribution Width 13.4 % (11.5-17.5); White Blood Count 7.6 K/mm3 (4.8-10.8)
[2024-04-13 19:30] LABS: Hemoglobin 12.1 g/dL (12.2-16.2)
[2024-04-13 19:38] LABS: Chloride 106 mmol/L (98-107); Potassium 3.8 mmoL/L (3.5-5.1); Sodium 136 mmol/L (136-145)
[2024-04-13 19:41] LABS: Anion Gap 5.8 mEq/L (5-15); Blood Urea Nitrogen 11 mg/dl (7-17); Calcium 8.8 mg/dl (8.4-10.2); Carbon Dioxide 28 mmol/L (22.0-30.0); Creatinine Clearance Estimated 55 mL/min (50-200); Estimated Glomerular Filt Rate 101 ml/min (>60); GFR (African American) 122 ML/MIN (>60); Glucose 93 mg/dl (74-100)
[2024-04-13 19:56] LABS: Troponin I 1.43 ng/ml (0.00-0.034)
[2024-04-13 20:00] VITALS: BP 104/63; PULSE 70; PULSE 80; RESP 16; TEMP 36.4; O2SAT 96
--- NOTE | 2024-04-13 21:00 | PC.NURSE ---
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 Charge Danielle Silvestre RN and sharon Ellsworth RN cleared.
[2024-04-14] VITALS (22 sets, daily range): BP systolic 91–112; BP diastolic 37–66; PULSE 60–701; RESP 14–18; TEMP 36.4–37.1; O2SAT 94–100; BMI 22.8
--- NOTE | 2024-04-14 | IR_ITS ---
APPROVED REPORT Patient Location: Inpatient Pad Extractor Tender: SEFERINO Briones RT (R) PROCEDURES Left heart catheterization Left ventriculogram Selective coronary angiogram INDICATION Acute non-ST elevation myocardial infarction Informed consent was obtained prior to the procedure. COMPLICATIONS None Estimated Blood Loss: Less than 10 mls TECHNIQUE One percent lidocaine used to anesthetize the right anterior aspect of the wrist. The right radial artery was accessed via the Seldinger technique. A 6 Iranian sheath was placed in the right radial artery. 2.5 mg of Verapamil, 800 mcg of nitroglycerin, 1mg Lidocaine and 5000 U Heparin were given through the arterial sheath. The papa catheter was also used to perform left heart catheterization, left ventriculogram and selective coronary angiogram. At the end of the procedure the sheath was removed good hemostasis was achieved using Traclet band, patient was transferred to the postop holding area in stable condition. ANGIOGRAPHIC RESULTS The left main artery Normal The left anterior descending artery Normal The circumflex artery Dominant normal The right coronary artery Vestigial normal The ZHAO ventriculogram reveals Reduced ejection fraction 25% with anterior apical ballooning The left ventricular end-diastolic pressure 15 mmHg IMPRESSION Normal coronary arteries Stress cardiomyopathy as described above Normal LVEDP PLAN 1. Supportive care 2. Standard therapy for systolic heart failure Electronically signed by : Serge Roper MD 04/14/2024 13:32:11
--- NOTE | 2024-04-14 05:27 | PC.NURSE ---
Alert and oriented. Rested throughout the night. No complaints of chest pain throughout the night. Rested well. Consent signed. Tolerating room air. Call light in reach.
--- NOTE | 2024-04-14 06:14 | PC.NURSE ---
Patient called out complaining of chest pain, rates 5/10 in mid chest. NSR on tele, 1 dose of nitro SL qiven. Patient states she is now feeling better. Crispin VALDEZ notified.
[2024-04-14 06:32] LABS: Basophils # 0.1 K/mm3 (0-0.2); Basophils % 1.8 % (0.1-2.0); Eosinophils # 0.1 K/mm3 (0.0-0.4); Eosinophils % 1.8 % (0.1-12.0); Hematocrit 41.5 % (37.0-47.0); Hemoglobin 13.1 g/dL (12.2-16.2); Lymphocytes # 1.8 K/mm3 (0.7-4.5); Lymphocytes % 30.9 % (10-50); Mean Corpuscular HGB Conc 31.6 g/dL (31.8-35.4); Mean Corpuscular Hemoglobin 32.3 pg (27.0-31.2); Mean Corpuscular Volume 102.4 fl (81-99); Mean Platelet Volume 9.3 fl (7.4-10.4); Monocytes # 0.6 K/mm3 (0.1-1.0); Monocytes % 9.9 % (1.7-9.3); Neutrophils # 3.2 K/mm3 (1.8-7.8); Neutrophils % 55.6 % (37.0-80.0); Platelet Count 238 K/mm3 (142-424); Red Blood Count 4.05 M/mm3 (4.20-5.40); Red Cell Distribution Width 13.6 % (11.5-17.5); White Blood Count 5.7 K/mm3 (4.8-10.8)
[2024-04-14 06:35] LABS: Chloride 108 mmol/L (98-107); Sodium 138 mmol/L (136-145)
[2024-04-14 06:38] LABS: Blood Urea Nitrogen 8 mg/dl (7-17); Calcium 8.7 mg/dl (8.4-10.2); Carbon Dioxide 31 mmol/L (22.0-30.0); Creatinine Clearance Estimated 55 mL/min (50-200); Estimated Glomerular Filt Rate 101 ml/min (>60); GFR (African American) 122 ML/MIN (>60); Glucose 96 mg/dl (74-100)
--- NOTE | 2024-04-14 14:26 | EXP.CARD.PN ---
Subjective Subjective Date: 04/14/24 Time: 08:00 Principal diagnosis: NSTEMI Interval history: Doing well, continues to have episodes of chest pain relieved by nitro. No ekg changes. [facility]waiting [facility]. Morning labs reviewed. Exam Data for Last 24 hours Vital signs and Labs for Last 24 Hours: Temp Pulse Resp BP Pulse Ox O2 Del Method 97.7 F 60 16 106/58 L 94 L Room Air 04/14/24 14:10 04/14/24 14:10 04/14/24 14:10 04/14/24 14:10 04/14/24 14:10 04/14/24 14:10 Laboratory Results - last 24 hr 04/13/24 13:35: D-Dimer < 0.25, Troponin I 0.95 H 04/13/24 17:15: Troponin I 1.87 H 04/13/24 19:18: WBC 7.6, RBC 3.63 L, Hgb 12.1 L D, Hct 36.8 L, MCV 101.4 H, MCH 33.4 H, MCHC 32.9, RDW 13.4, Plt Count 220, MPV 8.8, Neut % (Auto) 57.5, Lymph % (Auto) 31.5, [place] % (Auto) 8.2, Eos % (Auto) 1.3, Baso % (Auto) 1.5, Neut # (Auto) 4.4, Lymph # (Auto) 2.4, [place] # (Auto) 0.6, Eos # (Auto) 0.1, Baso # (Auto) 0.1, Sodium 136, Potassium 3.8, Chloride 106, Carbon Dioxide 28, Anion Gap 5.8, BUN 11, Creatinine 0.60, Estimated Creat Clear 55, Estimated GFR 101, Est GFR ( Amer) 122, Glucose 93, Calcium 8.8, Troponin I 1.43 H 04/14/24 06:15: WBC 5.7, RBC 4.05 L, Hgb 13.1, Hct 41.5, MCV 102.4 H, MCH 32.3 H, MCHC 31.6 L, RDW 13.6, Plt Count 238, MPV 9.3, Neut % (Auto) 55.6, Lymph % (Auto) 30.9, [place] % (Auto) 9.9 H, Eos % (Auto) 1.8, Baso % (Auto) 1.8, Neut # (Auto) 3.2, Lymph # (Auto) 1.8, [place] # (Auto) 0.6, Eos # (Auto) 0.1, Baso # (Auto) 0.1, Sodium 138, Potassium 4.0, Chloride 108 H, Carbon Dioxide 31 H, Anion Gap 3.0 L, BUN 8 D, Creatinine 0.60, Estimated Creat Clear 55, Estimated GFR 101, Est GFR ( Amer) 122, Glucose 96, Calcium 8.7 I & O for Last 24 hours: Intake & Output 04/11/24 04/12/24 04/13/24 04/14/24 23:59 23:59 23:59 23:59 Intake Total 480 / 780 300 / 300 Output Total 0 / 0 0 / 0 Balance 480 / 780 300 / 300 Weight 132 lb 3 oz 134 lb 3.2 oz Constitutional Constitutional: no acute distress *Routine Respiratory Exam Respiratory: Present CTA bilaterally and symmetric chest movement *Routine Cardiovascular Exam Cardiovascular: Present RRR, Normal S1 and Normal S2 *Routine Abdominal Exam Abdominal: Present soft and normoactive bowel sounds; Absent tenderness *Routine Extremities Exam Extremities: Present full ROM and normal capillary refill; Absent edema *Routine Skin Exam Skin: Present intact, dry and warm Detailed Neck Exam: Thyroids Thyroid: Absent bruit Progress Note: A&P Assessment and plan (1) Non-ST elevation [place] (NSTEMI): Status: Acute Assessment and Plan Assessment and Plan for All Diagnoses:: Chest pain NSTEMI Takotsubo cardiomyopathy Troponin 0.95 trending up to 1.87 EKG negative for STEMI Patient loaded with aspirin and Plavix Started on Lovenox 1 mg/kg twice daily prior to cath LHC 04/14/2024: Normal coronary arteries, stress cardiomyopathy Can DC aspirin and Plavix Takotsubo cardiomyopathy Echo shows an estimated EF of 25%. Official read is pending. Start entresto 24/26 mg po BID Start coreg 3.125mg po BID Start aldactone 12.5 po daily Start Jardiance 10mg po daily Will need lifevest prior to dc home, order placed. CV summary 04/14/2024: Takotsubo cardiomyopathy, EF 25%, official read is pending. LifeVest order placed. Start GDMT. Anticipate DC home tomorrow morning. Cardiac meds Entresto 24/26mg po bid Coreg 3.125mg po bid aldactone 12.5mg po daily jardiance 10mg po daily
[2024-04-14 16:19] LABS: Direct LDL Cholesterol 115.13 mg/dL (100-129)
--- NOTE | 2024-04-14 16:39 | CA_ITS ---
APPROVED REPORT EXAM: Comprehensive 2D, Doppler, and color-flow Echocardiogram Managed Care Specialist: Elizabeth Girard CRT Ht: 5 ft 4 in Wt: 132lbs BSA: 1.64 BP: 97/58 mmHg Indications: Chest Pain, Shortness of Breath, Non STEMI 2D Dimensions Left Atrium 3.00 cm LA Volume 35.20 mL LVOT 2.01 cm (M/F) 1.5-2.5 LA Volume Index 21.50 mL/m2 (M/F) 16-34 EF AP2 44.3 % GL Strain -12.0 % M-Mode Dimensions RVDd 2.47 cm (0.9-2.6) LVDd 4.29 cm (3.5-5.7) Ao Diam 3.43 cm (2.0-3.7) LVDs 3.06 cm (3.5-5.7) IVSd 1.55 cm (0.6-1.1) PWd 0.75 cm (0.6-1.1) EF (Teich) 55.60% FS 28.70% EDV (Teich) 82.60 mL TAPSE 2.15 (<1.7) ESV (Teich) 36.70 mL LV Diastology E Decel Time 258 (160-240 msec) E/A Ratio 0.67 MED E' 5.8 (>= 7 cm/sec) MED A' 10.00 cm/s E'/MED E' Ratio 9.09 (<= 14) LAT E' 7.4 (>= 10 cm/sec) LAT A' 10.20 cm/s E/LAT E' Ratio 7.12 (<= 14) Aortic Valve AoV Peak José Miguel. 106.0 (50-130 cm/s) AO Peak GR. 4.50 mmHg Mitral Valve MV E Max José Miguel. 53.0 (40-130 cm/s) MV A Velocity 79.0 (40-130 cm/s) E/A Ratio 0.67 MV Decel. Time 258 (160-240 ms) Tricuspid Valve TR P. Velocity 284.00 cm/s RAP Estimate 10.00 mmHg RVSP 42.30 mmHg Left Ventricle The left ventricle is normal size. The left ventricular systolic function is severely reduced. Proximal septal thickening is noted. There is severe global hypokinesis. The mid to distal septal LV pandya, as well as the LV apex are akinetic. Grade 1 diastolic dysfunction is present. LVEF is 25%. Right Ventricle The right ventricle is normal size. The right ventricular systolic function is normal. Atria Left atrium is mildly dilated. Right atrium is mildly dilated. There is no Doppler evidence of interatrial shunt. Aortic Valve The aortic valve is mildly thickened. There is no aortic valvular stenosis. No aortic regurgitation is present. Mitral Valve The mitral valve is normal in structure. No evidence of mitral valve stenosis. There is no mitral valve regurgitation noted. Tricuspid Valve The tricuspid valve leaflets are thin and pliable. Mild tricuspid regurgitation. RVSP is 25-30 mmHg. Pulmonic Valve The pulmonary valve is normal in structure. Mild pulmonic regurgitation. Great Vessels The aortic root is normal in size. IVC is normal in size and collapses >50% with inspiration. Pericardium There is no pericardial effusion. Other Information Study Quality: Fair Conclusion Severely reduced LV systolic function (LVEF 25%). The mid to distal septal LV pandya, as well as the LV apex are akinetic. Biatrial dilation. Mild TR, mild PI. Electronically signed by : Mary Lou Hernandez MD 04/15/2024 11:00:26
--- NOTE | 2024-04-14 17:46 | EXP.ACUTE.PN ---
Subjective *Date: 04/14/24 *Time: 17:53 Interval history: Patient status post cardiac catheterization today with Takotsubo cardiomyopathy noted. Coronaries normal however patient's ejection fraction 25%. Cardiology currently ordering LifeVest. Patient denies chest discomfort, shortness of breath when evaluated by Dr. Mott this a.m. Medical Exam Vital signs and Labs for Last 24 Hours: Vital Signs Temp Pulse Pulse Resp BP Pulse Ox O2 Del Method 04/14/24 16:55 97.6 F 61 16 99/53 L 95 Room Air 04/14/24 16:25 67 16 91/55 L 96 Room Air 04/14/24 16:00 70 04/14/24 15:55 60 14 112/66 97 Room Air 04/14/24 15:25 98.0 F 64 16 110/66 98 Room Air 04/14/24 15:00 Room Air 04/14/24 14:55 63 16 94/49 L 99 Room Air 04/14/24 14:40 66 16 92/56 L 97 Room Air 04/14/24 14:25 62 16 95/57 L 98 Room Air 04/14/24 14:10 97.7 F 60 16 106/58 L 94 L Room Air 04/14/24 13:55 101/64 L 04/14/24 13:50 80 18 107/63 L 99 Room Air 04/14/24 13:45 83 16 102/64 L 100 Room Air 04/14/24 13:40 98.4 F 85 85 18 107/66 L 99 Room Air 04/14/24 13:00 Room Air 04/14/24 12:00 70 04/14/24 12:00 98.7 F 65 18 108/60 L 100 Room Air 04/14/24 11:00 Room Air 04/14/24 09:00 Room Air 04/14/24 08:25 Room Air 04/14/24 08:00 70 04/14/24 08:00 97.8 F 65 18 100/64 L 100 Room Air 04/14/24 07:00 Room Air 04/14/24 05:00 Room Air 04/14/24 04:00 97.6 F 67 16 101/62 L 100 Room Air 04/14/24 04:00 70 04/14/24 03:00 Room Air 04/14/24 01:00 Room Air 04/14/24 00:00 98.4 F 76 16 96/58 L 97 Room Air 04/13/24 23:00 Room Air 04/13/24 21:00 Room Air 04/13/24 20:00 80 04/13/24 20:00 Room Air 04/13/24 20:00 97.5 F L 70 16 104/63 L 96 04/13/24 19:00 Room Air Intake and Output 04/14/24 04/14/24 04/14/24 07:59 15:59 23:59 Intake Total 300 / 300 Output Total 0 / 0 Balance 300 / 300 Intake: Intake, Oral Amount 300 / 300 Output: Output, Urine Amount 0 / 0 Other: Number of Unmeasured Voids 2 Weight 60.872 kg Patient Weight 04/14/24 23:59 Weight 60.872 kg Laboratory Results - last 24 hr 04/13/24 17:15: Troponin I 1.87 H 04/13/24 19:18: WBC 7.6, RBC 3.63 L, Hgb 12.1 L D, Hct 36.8 L, MCV 101.4 H, MCH 33.4 H, MCHC 32.9, RDW 13.4, Plt Count 220, MPV 8.8, Neut % (Auto) 57.5, Lymph % (Auto) 31.5, [place] % (Auto) 8.2, Eos % (Auto) 1.3, Baso % (Auto) 1.5, Neut # (Auto) 4.4, Lymph # (Auto) 2.4, [place] # (Auto) 0.6, Eos # (Auto) 0.1, Baso # (Auto) 0.1, Sodium 136, Potassium 3.8, Chloride 106, Carbon Dioxide 28, Anion Gap 5.8, BUN 11, Creatinine 0.60, Estimated Creat Clear 55, Estimated GFR 101, Est GFR ( Amer) 122, Glucose 93, Calcium 8.8, Troponin I 1.43 H 04/14/24 06:15: WBC 5.7, RBC 4.05 L, Hgb 13.1, Hct 41.5, MCV 102.4 H, MCH 32.3 H, MCHC 31.6 L, RDW 13.6, Plt Count 238, MPV 9.3, Neut % (Auto) 55.6, Lymph % (Auto) 30.9, [place] % (Auto) 9.9 H, Eos % (Auto) 1.8, Baso % (Auto) 1.8, Neut # (Auto) 3.2, Lymph # (Auto) 1.8, [place] # (Auto) 0.6, Eos # (Auto) 0.1, Baso # (Auto) 0.1, Sodium 138, Potassium 4.0, Chloride 108 H, Carbon Dioxide 31 H, Anion Gap 3.0 L, BUN 8 D, Creatinine 0.60, Estimated Creat Clear 55, Estimated GFR 101, Est GFR ( Amer) 122, Glucose 96, Calcium 8.7 04/14/24 15:15: LDL Cholesterol Direct 115.13 I & O for Labs for Last 24 Hours: Intake & Output 04/11/24 04/12/24 04/13/24 04/14/24 23:59 23:59 23:59 23:59 Intake Total 480 / 780 300 / 300 Output Total 0 / 0 0 / 0 Balance 480 / 780 300 / 300 Weight 59.959 kg 60.872 kg Head: Present normocephalic ENT: Present normal exam and normal oropharynx Neck: Present normal inspection and full ROM Respiratory: Present CTA bilaterally and normal respiratory effort Cardiac: Present Regular Rhythm and Bradycardia GI: Present soft and normal bowel so
--- NOTE | 2024-04-14 18:43 | PC.NURSE ---
pt has done well this shift. no c/o chest pain. vss. needs a life vest before discharge.
--- NOTE | 2024-04-14 22:12 | PC.NURSE ---
Spoke with Charlotte, the rep with [employer] who was questioning pts insurance. Confirmed with pt that she does not have insurance and relayed to Charlotte. Provided pt with packet for financial assistance. Pt and spouse will complete and return by morning.
[2024-04-15] VITALS (7 sets, daily range): BP systolic 95–118; BP diastolic 58–68; PULSE 60–80; RESP 16–18; TEMP 36.6–36.8; O2SAT 97–100; BMI 22.4
--- NOTE | 2024-04-15 04:46 | PC.NURSE ---
63 yo female pt is A/O x 4. She has rested well this shift. VSS and has denied pain or discomfort. Pt has remained in NSR per tele.
[2024-04-15 06:28] LABS: Basophils # 0.1 K/mm3 (0-0.2); Basophils % 1.5 % (0.1-2.0); Eosinophils # 0.1 K/mm3 (0.0-0.4); Eosinophils % 2.1 % (0.1-12.0); Hematocrit 41.5 % (37.0-47.0); Hemoglobin 13.3 g/dL (12.2-16.2); Lymphocytes # 1.7 K/mm3 (0.7-4.5); Lymphocytes % 29.9 % (10-50); Mean Corpuscular Hemoglobin 31.6 pg (27.0-31.2); Mean Corpuscular Volume 98.9 fl (81-99); Mean Platelet Volume 9.2 fl (7.4-10.4); Monocytes # 0.5 K/mm3 (0.1-1.0); Monocytes % 9.8 % (1.7-9.3); Neutrophils # 3.1 K/mm3 (1.8-7.8); Neutrophils % 56.6 % (37.0-80.0); Platelet Count 223 K/mm3 (142-424); Red Blood Count 4.19 M/mm3 (4.20-5.40); Red Cell Distribution Width 13.6 % (11.5-17.5); White Blood Count 5.5 K/mm3 (4.8-10.8)
[2024-04-15 06:34] LABS: Chloride 107 mmol/L (98-107)
[2024-04-15 06:35] LABS: Potassium 4.3 mmoL/L (3.5-5.1); Sodium 137 mmol/L (136-145)
[2024-04-15 06:37] LABS: Blood Urea Nitrogen 9 mg/dl (7-17); Creatinine Clearance Estimated 54 mL/min (50-200); Estimated Glomerular Filt Rate 101 ml/min (>60); GFR (African American) 122 ML/MIN (>60)
[2024-04-15 06:38] LABS: Anion Gap 4.3 mEq/L (5-15); Calcium 8.6 mg/dl (8.4-10.2); Carbon Dioxide 30 mmol/L (22.0-30.0); Glucose 108 mg/dl (74-100)
--- NOTE | 2024-04-15 10:12 | P.PN_ITS ---
Subjective Subjective Date: 04/15/24 Time: 08:00 Principal diagnosis: NSTEMI, takotsubo Interval history: Patient is doing well status post heart cath. Vitals remained stable. Patient denies chest pain or shortness of breath. Morning labs reviewed. Exam Data for Last 24 hours Vital signs and Labs for Last 24 Hours: Temp Pulse Resp BP Pulse Ox O2 Del Method 98.1 F 80 18 95/59 L 100 Room Air 04/15/24 07:59 04/15/24 08:00 04/15/24 07:59 04/15/24 07:59 04/15/24 07:59 04/15/24 10:10 Laboratory Results - last 24 hr 04/14/24 15:15: LDL Cholesterol Direct 115.13 04/15/24 05:31: WBC 5.5, RBC 4.19 L, Hgb 13.3, Hct 41.5, MCV 98.9, MCH 31.6 H, MCHC 32.0, RDW 13.6, Plt Count 223, MPV 9.2, Neut % (Auto) 56.6, Lymph % (Auto) 29.9, [place] % (Auto) 9.8 H, Eos % (Auto) 2.1, Baso % (Auto) 1.5, Neut # (Auto) 3.1, Lymph # (Auto) 1.7, [place] # (Auto) 0.5, Eos # (Auto) 0.1, Baso # (Auto) 0.1, Sodium 137, Potassium 4.3, Chloride 107, Carbon Dioxide 30, Anion Gap 4.3 L, BUN 9, Creatinine 0.60, Estimated Creat Clear 54, Estimated GFR 101, Est GFR ( Amer) 122, Glucose 108 H, Calcium 8.6 I & O for Last 24 hours: Intake & Output 04/12/24 04/13/24 04/14/24 04/15/24 23:59 23:59 23:59 23:59 Intake Total 480 / 780 660 / 660 360 / 360 Output Total 0 / 0 0 / 0 0 / 0 Balance 480 / 780 660 / 660 360 / 360 Weight 132 lb 3 oz 134 lb 3.2 oz 131 lb 1.6 oz Constitutional Constitutional: no acute distress *Routine Respiratory Exam Respiratory: Present CTA bilaterally and symmetric chest movement *Routine Cardiovascular Exam Cardiovascular: Present RRR, Normal S1 and Normal S2 *Routine Abdominal Exam Abdominal: Present soft and normoactive bowel sounds; Absent tenderness *Routine Extremities Exam Extremities: Present full ROM and normal capillary refill; Absent edema *Routine Skin Exam Skin: Present intact, dry and warm Detailed Neck Exam: Thyroids Thyroid: Absent bruit Progress Note: A&P Assessment and plan (1) Non-ST elevation [place] (NSTEMI): Status: Acute (2) Takotsubo syndrome: Status: Acute Assessment and Plan Assessment and Plan for All Diagnoses:: Chest pain NSTEMI Takotsubo cardiomyopathy Troponin 0.95 trending up to 1.87 EKG negative for STEMI Patient loaded with aspirin and Plavix Started on Lovenox 1 mg/kg twice daily prior to cath 04/14/2024: Normal coronary arteries, stress cardiomyopathy Can DC aspirin and Plavix Takotsubo cardiomyopathy Echo shows an estimated EF of 25%. Official read is pending. Continue entresto 24/26 mg po BID Continue coreg 3.125mg po BID Continue aldactone 12.5 po daily Continue Jardiance 10mg po daily Will need lifevest prior to dc home, order placed, pending CV summary 04/15/2024: Patient is CV stable for discharge home. Takotsubo cardiomyopathy, EF 25%, official read is pending. LifeVest fit pending. Start on GDMT and tolerating well. Continue below listed medications and have patient follow-up in cardiology clinic in 1 week for reevaluation. Cardiac meds Entresto 24/26mg po bid Coreg 3.125mg po bid aldactone 12.5mg po daily jardiance 10mg po daily
--- NOTE | 2024-04-15 17:33 | EXP.DC.SUM ---
General Admission date:: 04/13/24 Discharge date: 04/15/24 HPI HPI HPI: Patient is a 53-year-old female with past medical history of generalized anxiety disorder who presents to the hospital due to chest pain. Reportedly patient has been having significant stress due to family and home situation, started having pain, substernal, nonradiating associated with anxiety. According to the patient she was visiting her daughter in the hospital and while in the hospital she started having chest pains. Patient otherwise denied fever chills diarrhea constipation dysuria. Hospital Course Hospital Course Hospital Course: Patient is a 53-year-old female with past medical history of generalized anxiety disorder who presents to the hospital due to chest pain. Reportedly patient has been having significant stress due to family and home situation, started having pain, substernal, nonradiating associated with anxiety. According to the patient she was visiting her daughter in the hospital and while in the hospital she started having chest pains. Patient otherwise denied fever chills diarrhea constipation dysuria. Patient status post cardiac catheterization 04/14/24 with EF 25% noted. Patient diagnosed with Takotsubo syndrome. Clinically stable. Responding to goal-directed therapy. Stable to discharge home with close outpatient follow-up with cardiology. Problems addressed as follows: Takotsubo syndrome: ? Presented with chest pain. Found to have elevated troponin. Taken for left heart cath 04/14 confirming diagnosis of takotsubo. Started on goal-directed therapy carvedilol 3.125 mg twice daily, Jardiance 10 mg daily, Entresto twice daily, and spironolactone 12 and half milligrams daily. Patient provided with samples of Jardiance and Entresto. Left close follow-up with cardiology for further management. EF of 25% during admission, LifeVest provided on day of discharge. Mood disorder: Continue home management with Wellbutrin 150mg daily Clinically showing improvement. Discussed case with cardiology on day of discharge. Labs show stability with normal white count of 5.5, hemoglobin 13.3. Kidney function normal with BUN 9, creatinine 0.6. Total time spent on discharge 32 minutes in counseling, documentation, chart review, and direct care with patient. Exam Data for Last 24 hours Vital signs and Labs for Last 24 Hours: Temp Pulse Resp BP Pulse Ox O2 Del Method 98.2 F 69 18 107/65 L 97 Room Air 04/15/24 16:00 04/15/24 16:00 04/15/24 16:00 04/15/24 16:00 04/15/24 16:00 04/15/24 16:00 Laboratory Results - last 24 hr 04/15/24 05:31: WBC 5.5, RBC 4.19 L, Hgb 13.3, Hct 41.5, MCV 98.9, MCH 31.6 H, MCHC 32.0, RDW 13.6, Plt Count 223, MPV 9.2, Neut % (Auto) 56.6, Lymph % (Auto) 29.9, [place] % (Auto) 9.8 H, Eos % (Auto) 2.1, Baso % (Auto) 1.5, Neut # (Auto) 3.1, Lymph # (Auto) 1.7, [place] # (Auto) 0.5, Eos # (Auto) 0.1, Baso # (Auto) 0.1, Sodium 137, Potassium 4.3, Chloride 107, Carbon Dioxide 30, Anion Gap 4.3 L, BUN 9, Creatinine 0.60, Estimated Creat Clear 54, Estimated GFR 101, Est GFR ( Amer) 122, Glucose 108 H, Calcium 8.6 I & O for Last 24 hours: Intake & Output 04/12/24 04/13/24 04/14/24 04/15/24 23:59 23:59 23:59 23:59 Intake Total 480 / 780 660 / 660 660 / 660 Output Total 0 / 0 0 / 0 0 / 0 Balance 480 / 780 660 / 660 660 / 660 Weight 59.959 kg 60.872 kg 59.466 kg Constitutional Constitutional: no acute distress, average body habitus and cooperative *Routine HEENT Exam Head: Present normocephalic Eye: Present EOMI and PERRL ENT: Present mucous membranes moist *Routine Neck Exam Neck: Present supple; Absent lymphadenopathy *Routine Respiratory Exam Respiratory: Present CTA bilaterally; Absent rhonchi, wheezes or crackles *Routine Cardiovascular Exam Cardiovascular: Present RRR *Routine Abdominal Exam Abdominal: Present soft and normoactive bowel sounds; Absent tenderness *Routine Rectal Exam P
--- NOTE | 2024-04-15 19:06 | PC.NURSE ---
Charlotte called and stated patient approved for her lifevest. Nurse to come and place on patient before she leaves to go home. Nurse Fiona aware patient still needs her iv removed. All other papers and d/c content have been given to the patient.
--- NOTE | 2024-04-16 12:51 | SW/DCPLANNER ---
Hospital follow up phone call: patient stated that she is feeling well at home, was able to slat pickler new medications and is aware of follow up appointments. Patient did not have any further needs/questions at this time.
== END 2024-04-15 21:27 | disposition home or self-care (01) | DRG 280 ==
LOC: ER 14:18 → 2ND 14:30
PROVIDERS: Internal Medicine; Nurse Practitioner; Admitting Provider Internal Medicine; Emergency Provider Student in an Organized Health Care Education/Training Program; PCP Nurse Practitioner Family; Visit Provider Internal Medicine
PROC: 4A023N7 Measurement of Cardiac Sampling and Pressure, Left Heart, Percutaneous Approach (ICD-10-PCS; principal; 2024-04-14 12:00)
DX: I21.4 Non-ST elevation (NSTEMI) myocardial infarction (principal); I50.21 Acute systolic (congestive) heart failure; I51.81 Takotsubo syndrome; Z79.899 Other long term (current) drug therapy; Z63.79 Other stressful life events affecting family and household
CPT/HCPCS: 36415; 71045; 80048; 80053; 83722; 84484; 85025; 85378; 93005; 93306; 93458; 99152; 99291; C1725; C1769; J1200; J1644; J1650; J2060; J2250; J3010; J7120; Q9967

== ENCOUNTER 2024-05-27 09:27 | Outpatient (CLI) | payer SELFPAY ==
--- NOTE | 2024-05-27 09:49 | CA_ITS ---
APPROVED REPORT EXAM: Limited 2D Echocardiogram [place] Examiner: Kayleen Watts, RCS, RVS Ht: 5 ft 4 in Wt: 122lbs BSA: 1.59 BP: 102/56 mmHg Indications: Stress cardiomyopathy, CHF, Lifevest-previous EF 25%-04/14/24 2D Dimensions LVDd 3.70 cm F: 3.9 - 5.3 LVEF (Visual) 46.80 % LVDs 2.85 cm F: 2.2 - 3.5 M-Mode Dimensions RVDd 2.25 cm (0.9-2.6) LA Diam 2.56 cm (1.9-4.0) LVDd 4.27 cm (3.5-5.7) LVDs 3.09 cm (3.5-5.7) IVSd 0.81 cm (0.6-1.1) PWd 0.87 cm (0.6-1.1) EF (Teich) 54.00% EPSs 0.57 cm FS 27.60% EDV (Teich) 81.70 mL ESV (Teich) 37.60 mL Other Information Study Quality: Adequate Conclusion This is a limited TTE to evaluate for LV systolic function in the setting of prior stress cardiomyopathy. Limited windows were obtained. The left ventricle is normal in size. There is normal LV wall thickness. There is normal LV systolic function. No regional wall motion abnormalities are noted. LVEF is 55%. Electronically signed by : Mary Lou Hernandez MD 05/27/2024 11:51:50
== END 2024-05-27 23:59 | disposition home or self-care (01) ==
LOC: RT 09:29
PROVIDERS: PCP Nurse Practitioner Family; Visit Provider Nurse Practitioner
DX: I50.21 Acute systolic (congestive) heart failure (principal); I51.81 Takotsubo syndrome
CPT/HCPCS: 93308

== ENCOUNTER 2025-01-17 06:49 | Emergency (ER) | payer SELFPAY ==
[2025-01-17] VITALS (13 sets, daily range): BP systolic 98–149; BP diastolic 45–68; PULSE 66–95; RESP 12–18; TEMP 36.6–36.8; O2SAT 97–100; BMI 26.6
--- NOTE | 2025-01-17 07:02 | CT_ITS ---
PROCEDURE INFORMATION: Exam: CTA Neck With Contrast Exam date and time: 01/17/2025 7:17 AM Age: 64 years old Clinical indication: Stroke-like symptoms; Altered mental status/memory loss and dizziness/giddiness; Additional info: Acute dizzy vom torsional nystagmus TECHNIQUE: Imaging protocol: Computed tomographic angiography of the neck with contrast. Exam focused on the cervical segments of the vasculature. 3D rendering (Not supervised by radiologist): MIP and/or 3D reconstructed images were created by the technologist. Radiation optimization: All CT scans at this facility use at least one of these dose optimization techniques: automated exposure control; mA and/or kV adjustment per patient size (includes targeted exams where dose is matched to clinical indication); or iterative reconstruction. Contrast material: ISOVUE; Contrast volume: 80 ml; Contrast route: INTRAVENOUS (IV); COMPARISON: CT HEAD/BRAIN WO CON 01/17/2025 7:14 AM FINDINGS: Right common carotid artery: No stenosis. No dissection or occlusion. Right internal carotid artery: No stenosis of the extracranial segment. No dissection or occlusion. Right external carotid artery: No occlusion or stenosis of the origin. Left common carotid artery: No stenosis. No dissection or occlusion. Left internal carotid artery: No stenosis of the extracranial segment. No dissection or occlusion. Left external carotid artery: No occlusion or stenosis of the origin. Right vertebral artery: No stenosis. No dissection or occlusion. Left vertebral artery: No stenosis. No dissection or occlusion. Soft tissues: Normal. No significant soft tissue swelling. Bones/joints: No acute fracture. IMPRESSION: No stenosis or occlusion. REFERENCES: NASCET CRITERIA. The degree of stenosis in the cervical segment of the internal carotid artery is based on NASCET criteria. Normal is no stenosis. Mild is less than 50% stenosis. Moderate is 50-69% stenosis. Severe is 70% to 99% stenosis. Total occlusion is no detectable patent lumen.
--- NOTE | 2025-01-17 07:02 | CT_ITS ---
PROCEDURE INFORMATION: Exam: CTA Head With Contrast, Arteriography Exam date and time: 01/17/2025 7:17 AM Age: 64 years old Clinical indication: Stroke-like symptoms; Altered mental status/memory loss and dizziness/giddiness; Additional info: Acute dizzy vom torsional nystagmus TECHNIQUE: Imaging protocol: Computed tomographic angiography of the head with contrast. Exam focused on the arteries. 3D rendering (Not supervised by radiologist): MIP and/or 3D reconstructed images were created by the technologist. Radiation optimization: All CT scans at this facility use at least one of these dose optimization techniques: automated exposure control; mA and/or kV adjustment per patient size (includes targeted exams where dose is matched to clinical indication); or iterative reconstruction. Contrast material: ISOVUE; Contrast volume: 80 ml; Contrast route: INTRAVENOUS (IV); COMPARISON: CT HEAD/BRAIN WO CON 01/17/2025 7:14 AM FINDINGS: ANTERIOR CIRCULATION: Right internal carotid artery: Intracranial segment is patent with no significant stenosis. No aneurysm. Right middle cerebral artery: No occlusion or significant stenosis. No aneurysm. Right anterior cerebral artery: No occlusion or significant stenosis. No aneurysm. Left internal carotid artery: Intracranial segment is patent with no significant stenosis. No aneurysm. Left middle cerebral artery: No occlusion or significant stenosis. No aneurysm. Left anterior cerebral artery: No occlusion or significant stenosis. No aneurysm. POSTERIOR CIRCULATION: Right vertebral artery: No occlusion or significant stenosis. No aneurysm. Left vertebral artery: No occlusion or significant stenosis. No aneurysm. Basilar artery: No occlusion or significant stenosis. No aneurysm. Right posterior cerebral artery: No occlusion or significant stenosis. No aneurysm. Left posterior cerebral artery: No occlusion or significant stenosis. No aneurysm. Brain: No definite mass, mass effect, or midline shift. Cerebral ventricles: No ventriculomegaly. Bones/joints: Unremarkable. No acute fracture. Soft tissues: Unremarkable. IMPRESSION: No large vessel stenosis or occlusion.
--- NOTE | 2025-01-17 07:02 | CT_ITS ---
PROCEDURE INFORMATION: Exam: CT Head Without Contrast Exam date and time: 01/17/2025 7:14 AM Age: 64 years old Clinical indication: Stroke-like symptoms; Altered mental status/memory loss and dizziness/giddiness; Additional info: Acute dizzy vom torsional nystagmus TECHNIQUE: Imaging protocol: Computed tomography of the head without contrast. Radiation optimization: All CT scans at this facility use at least one of these dose optimization techniques: automated exposure control; mA and/or kV adjustment per patient size (includes targeted exams where dose is matched to clinical indication); or iterative reconstruction. Other technique: STROKE PROTOCOL was implemented. COMPARISON: No relevant prior studies available. FINDINGS: Brain: There is no evidence of acute parenchymal hemorrhage, extra-axial collection, or acute infarction. There is no mass effect, midline shift, or downward herniation. Cerebral ventricles: No ventriculomegaly. Paranasal sinuses: Visualized sinuses are unremarkable. No fluid levels. Mastoid air cells: Visualized mastoid air cells are well aerated. Bones: Unremarkable. No acute fracture. Soft tissues: Unremarkable. IMPRESSION: No acute intracranial abnormality. ASSESSMENT: ASPECTS ([place] Stroke Program Early CT Score) is 10.
--- NOTE | 2025-01-17 07:02 | ECG_ITS ---
APPROVED REPORT Exam: Resting ECG HR:81 bpm ECG Measurements Heart Rate 81 AXES IN 157 P 62 QRSd 93 QRS 60 QT 372 T 47 QTc 410 Conclusion SINUS RHYTHM NORMAL ECG Electronically signed by : SEBLE MAHAJAN, 01/17/2025 12:24:21
[2025-01-17 07:08] LABS: Basophils # 0.1 K/mm3 (0-0.2); Basophils % 1.2 % (0.1-2.0); Eosinophils # 0.1 Kmm3 (0.0-0.4); Eosinophils % 0.7 % (0.1-12.0); Hematocrit 39.2 % (37.0-47.0); Hemoglobin 13.8 g/dL (12.2-16.2); Immature Granulocytes # 0.08 10^3uL; Immature Granulocytes % 0.8 %; Lymphocytes # 5.8 K/mm3 (0.7-4.5); Lymphocytes % 55.5 % (10-50); Mean Corpuscular HGB Conc 35.2 g/dL (31.8-35.4); Mean Corpuscular Hemoglobin 31.8 pg (27.0-31.2); Mean Corpuscular Volume 90.3 fl (81-99); Mean Platelet Volume 11.7 fl (7.4-10.4); Monocytes # 0.9 K/mm3 (0.1-1.0); Monocytes % 8.6 % (1.7-9.3); Neutrophils # 3.5 K/mm3 (1.8-7.8); Neutrophils % 33.2 % (37.0-80.0); Nucleated Red Blood Cells # 0 10^3/uL; Nucleated Red Blood Cells % 0 %; Platelet Count 183 K/mm3 (142-424); Red Blood Count 4.34 M/mm3 (4.20-5.40); Red Cell Distribution Width 12.5 % (11.5-17.5); Red Cell Distribution Width-SD 41.3 fL; White Blood Count 10.5 K/mm3 (4.8-10.8)
--- NOTE | 2025-01-17 07:09 | PC.NURSE ---
Glucose 168
[2025-01-17 07:10] LABS: MANUAL DIFFERENTIAL MANUAL DIFFERENTIAL (MANUAL DIFF)
[2025-01-17] MEDS: LACTATED RINGERS 1000ML 1,000 ML 999 ML IV (07:10)
--- NOTE | 2025-01-17 07:10 | HMH.EDGENADL ---
Discharge Plan Disposition Patient Disposition: Xfer Short-Term Hosp Prescriptions Prescriptions: No Action duloxetine [Cymbalta] 20 mg capsule,delayed release(DR/EC) 20 mg PO DAILY montelukast [Singulair] 10 mg tablet 10 mg PO DAILY cefdinir 300 mg capsule 300 mg PO BID Qty: 20 0RF benzonatate 100 mg capsule 100 mg PO BID PRN (Reason: cough) Qty: 20 0RF bupropion HCl [Wellbutrin SR] 150 mg Tablet Sustained-Release 12 Hr 150 mg PO DAILY fluticasone propionate 110 mcg/actuation Hfa Aerosol Inhaler 1 puff INHALATION BID atorvastatin 40 mg Tablet 40 mg PO HS Qty: 30 0RF carvedilol 3.125 mg Tablet 3.125 mg PO BID 30 Days Qty: 60 0RF Jardiance 10 mg Tablet 10 mg PO DAILY 30 Days Qty: 30 0RF spironolactone 25 mg Tablet 12.5 mg PO DAILY 30 Days Qty: 15 0RF Referrals Follow up/Referrals: Karen Taveras APRN [Primary Care Provider, Medical] - See instructions Clinical Impressions Clinical Impression: Acute CVA (cerebrovascular accident), Torsional nystagmus Print Language Print Language: Indian Discharge ED Provider: Erick Collins General Adult HPI General Chief complaint: Weakness Stated complaint: cp Time Seen by Provider: 01/17/25 06:50 History of Present Illness HPI narrative: Patient is a 64-year-old female with past medical history of heart failure with reduced ejection fraction on atorvastatin beta-meng, rwo-zzviisf-qgyswoqyj diabetes on empagliflozin, hypertension on spironolactone who presents emergency department for evaluation of nausea, vomiting, dizziness. It abruptly started while she was walking through the house at 600 this morning, no trauma, symptoms became quickly severe causing her to present here for continued evaluation. No anticoagulants. Patient ate homemade tacos last night for dinner. Patient is dizzy to the point where she cannot stand on her own. No chest pain, no abdominal pain, no headache. Please note that above description of symptoms, in this electronic medical record under categorization of recalled from ER triage doctor by RN are reflective of an initial nursing assessment, however, is not reflective of my full history and physical exam that was personally taken and clarified. Consequentially, this preceding description of symptoms, which may include the patient's categorized chief complaint in the EMR, do not reflect my personal clinical impression, and the ultimate description of history of present illness and patient stated complaints should be deferred to this section of the note. Unless stated otherwise or congruent with this section of the note, additional signs, symptoms, or incongruence should be interpreted as inaccurate with my clinical impression. Related Data Home Medications ?Medication ?Instructions ?Recorded ?Confirmed bupropion HCl 150 mg tablet,12 hr 150 mg PO DAILY 04/13/24 11/22/24 sustained-release (Wellbutrin SR) fluticasone propionate 110 1 puff inhalation BID 04/13/24 11/22/24 mcg/actuation HFA aerosol inhaler duloxetine 20 mg capsule,delayed 20 mg PO DAILY 05/29/24 11/22/24 release (Cymbalta) montelukast 10 mg tablet 10 mg PO DAILY 11/22/24 11/22/24 (Singulair) Previous Rx's ?Medication ?Instructions ?Recorded atorvastatin 40 mg tablet 40 mg PO HS #30 tabs 04/15/24 carvedilol 3.125 mg tablet 3.125 mg PO BID 30 days #60 tabs 04/15/24 empagliflozin 10 mg tablet 10 mg PO DAILY 30 days #30 tabs 04/15/24 (Jardiance) spironolactone 25 mg tablet 12.5 mg (1/2 x 25 mg) PO DAILY 30 04/15/24 days #15 tabs benzonatate 100 mg capsule 100 mg PO BID PRN cough #20 caps 11/22/24 cefdinir 300 mg capsule 300 mg PO BID #20 caps 11/22/24 Allergies Allergy/AdvReac Type Severity Reaction Status Date / Time No Known Allergies Allergy Verified 11/22/24 12:04 [facility] Disclaimer: The information contained in this section may have been updated after the patient was seen, as this information can be updated by other users. 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 [employer]ism: [employer] Other Medical History Have you received the Flu Vaccine for this season: No Have you received the Pneumonia Vaccine: No ROS Obtained: Yes Systems reviewed as appropriate & no additional complaints except as documented Physical Exam General General appearance: alert and in no apparent distress Head Head exam: atraumatic and normocephalic Eye Eye exam: Present PERRL, EOMI and other (Torsional nystagmus at rest bilaterally that does not extinguish) ENT ENT exam: Present mucous membranes moist Neck Neck exam: Present normal inspection Chest Chest inspection: Present normal inspection and symmetric chest wall rise Respiratory Respiratory exam: Present normal lung sounds bilaterally; Absent respiratory distress Cardiovascular Cardiovascular exam: Present regular rate and normal rhythm; Absent tachycardia Abdominal Exam Abdominal exam: Present soft; Absent tenderness Extremities Exam Extremities exam: Present normal inspection Neurological Exam Neurological exam: Present alert, oriented X3 and other (Torsional nystagmus at rest that does not extinguish with no movement); Absent CN II-XII intact (Torsional nystagmus bilaterally at rest) or motor sensory deficit Psychiatric Psychiatric exam: Present normal affect Skin Skin exam: Present warm and dry Medical Decision Making Medical Records Screening: Per USPSTF and CDC recommendations, given the prevalence of disease in our region, it is our hospital?s policy to screen for HIV and viral Hepatitis for all patients aged 18 and over and those with ongoing risk factors. Adis Inquiry Pt receiving controlled substance: No Vital Signs: 01/17/25 07:12 01/17/25 07:30 01/17/25 07:46 Temperature 98.2 F Temperature Source Oral Pulse Rate 72 84 Pulse Rate [Right] 83 Respiratory Rate 18 Blood Pressure 110/45 L 149/68 H Blood Pressure [Right Arm] 124/49 L Blood Pressure Mean [Right Arm] 74 Blood Pressure Source [Right Arm] Automatic Cuff Blood Pressure Position [Right Arm] Supine 02 Sat by Pulse Oximetry 100 98 100 Oxygen Delivery Method Room Air Room Air Room Air 01/17/25 07:50 01/17/25 08:00 Temperature 97.8 F Temperature Source Pulse Rate 73 74 Pulse Rate [Right] Respiratory Rate 14 15 Blood Pressure 149/68 H Blood Pressure [Right Arm] Blood Pressure Mean [Right Arm] Blood Pressure Source [Right Arm] Blood Pressure Position [Right Arm] 02 Sat by Pulse Oximetry 100 Oxygen Delivery Method Lab Data Lab Results 01/17/25 06:54: WBC 10.5, RBC 4.34, Hgb 13.8, Hct 39.2, MCV 90.3, MCH 31.8 H, MCHC 35.2, RDW 12.5, Plt Count 183, MPV 11.7 H, Neut % (Auto) 33.2 L, Lymph % (Auto) 55.5 H, [place] % (Auto) 8.6, Eos % (Auto) 0.7, Baso % (Auto) 1.2, Neut # (Auto) 3.5, Lymph # (Auto) 5.8 H, [place] # (Auto) 0.9, Eos # (Auto) 0.1, Baso # (Auto) 0.1, Total Counted 100, Neutrophils % (Manual) 29 L, Lymphocytes % (Manual) 63 H, Monocytes % (Manual) 8, Platelet Estimate Normal, RBC Morphology Normal, Sodium 135 L, Potassium 3.8, Chloride 108 H, Carbon Dioxide 20 L, Anion Gap 10.8, BUN 19 H, Creatinine 0.80, Estimated GFR 72, Est GFR ( Amer) 87, Glucose 152 H, Calcium 9.3, Magnesium 1.9, Total Bilirubin 0.6, AST 30, ALT 24, Alkaline Phosphatase 127 H, Troponin I < 0.01, Total Protein 7.0, Albumin 4.2, Globulin 2.8, Albumin/Globulin Ratio 1.5, Lipase 128 01/17/25 06:54 01/17/25 06:54 Orders (Tests/Meds): ED MEDICATIONS Generic Name Dose Route Start Last Admin Trade Name Freq PRN Reason Stop Dose Admin Tenecteplase 18 mg 01/17/25 08:15 Tenecteplase 50mg Vial IV 01/17/25 08:16 ONCE ONE Discontinued Medications Generic Name Dose Route Start Last Admin Trade Name Freq PRN Reason Stop Dose Admin Lactated Ringer's 1,000 mls @ 999 mls/hr 01/17/25 07:02 01/17/25 07:10 Lactated Ringer's 1000 Ml Bag IV 01/17/25 08:02 999 mls/hr .Q1H1M ONE Administration Iopamidol 80 ml 01/17/25 07:27 01/17/25 07:29 Iopamidol-370 (76%);100ml Bottle IV 01/17/25 07:28 80 ml ONCE ONE Administration Ondansetron HCl 4 mg 01/17/25 07:02 01/17/25 07:11 Ondansetron 4mg/2ml Vial IV 01/17/25 07:03 4 mg ONCE ONE Administration Sodium Chloride 10 ml 01/17/25 07:27 01/17/25 07:29 Sodium Chloride 0.9% 10ml Syr (Rad Only) IV 01/17/25 07:28 10 ml ONCE ONE Administration Sodium Chloride 50 ml 01/17/25 07:27 01/17/25 07:29 0.9 % Sodium Chloride 50 Ml Vial IV 01/17/25 07:28 50 ml ONCE ONE Administration ORDERS Category Date Time Status CT angio head Stat Cat Scan 01/17/25 07:[address] angio neck Stat Cat Scan 01/17/25 07:[address] head/brain wo con Stat Cat Scan 01/17/25 07:02 Taken CBC w/Auto Diff [Complete Blood Count Auto Diff] Stat Lab 01/17/25 06:54 Completed CMP [Comprehensive Metabolic Panel] Stat Lab 01/17/25 06:54 Completed HIV Combo Stat Lab 01/17/25 06:54 Received Hepatitis C Ab Qual. W/ RFX Stat Lab 01/17/25 06:54 Received Lipase Stat Lab 01/17/25 06:54 Completed MG [Magnesium] Stat Lab 01/17/25 06:54 Completed Trop I [Troponin I] Stat Lab 01/17/25 06:54 Completed Troponin I Q3H Lab 01/17/25 10:15 Ordered Troponin I Q3H Lab 01/17/25 13:15 Ordered ECG Data Tracing #1: Independently interpreted by me rate is 81, rhythm is regular, axis is normal, no ST elevation in anatomical contiguous leads, QTc 410. Medical Decision Narrative: In summary patient is a 64-year-old female with past medical history described above who presents to the emergency department for evaluation of dizziness and vomiting. Patient is hemodynamically stable and appearing significantly uncomfortable upon arrival, afebrile. Patient has torsional nystagmus at rest without photophobia bilaterally. Otherwise she has transient 5 out of 5 strength in all extremities and a symmetric smile. Patient was unable to ambulate in here, my concern for posterior circulation stroke is high although differential diagnosis includes BPPV, other causes of central vertigo, among others. Originally patient reported last known normal 630 however further clarifies and agrees with that symptoms began around 6. We will use 0600 as last known normal. Patient will undergo stroke alert since she is in the window. Hematologic labs to be obtained as well as noncontrasted CT scan of the head and CTA of the head and neck. Fingerstick is nonactionable. NIH will be obtained after CT imaging. Initial inventions include Zofran. Noncontrasted CT scan informally visualized by me no acute large intra-axial hemorrhage. Formal read noncontrasted CT scan of the head CTA of the head and neck no acute pathology. NIH is 5 scoring 1 on the level of consciousness, 2 on hemianopia to the left, 1 monitor facial palsy on the left, 1 left lower extremity drift. I had shared decision making discussion with patient given that she is in the window for thrombolytics at [facility] agree she is a candidate. She believes the symptoms to be disabling and given an NIH of 5 with no contraindications although the risk of bleeding is possible the benefits of TNK outweigh the risk and we will proceed. [facility] graciously excepted patient for continued evaluation at this time. Critical Care Critical Care Time Critical Care Time: Yes Attestation: On 01/17/25, the high probability of a clinically significant, sudden or life threatening deterioration of the following system(s) required my full and direct attention, intervention and personal management. The time I documented below is in addition to time spent performing reported procedures but includes the following listed in this critical care notation. Total Time Total Critical Care Time: 40
[2025-01-17] MEDS: ONDANSETRON 4MG/2ML VIAL 4 MG IV (07:11)
[2025-01-17 07:19] LABS: Alanine Aminotransferase 24 U/L (12-78); Albumin Level 4.2 g/dl (3.5-5.0); Albumin/Globulin Ratio 1.5 (1.1-1.8); Alkaline Phosphatase 127 U/L (38-126); Aspartate Amino Transferase 30 U/L (14-36); Bilirubin,Total 0.6 mg/dl (0.2-1.3); Blood Urea Nitrogen 19 mg/dl (7-17); Calcium 9.3 mg/dl (8.4-10.2); Carbon Dioxide 20 mmol/L (22.0-30.0); Chloride 108 mmol/L (98-107); Estimated Glomerular Filt Rate 72 ml/min (>60); GFR (African American) 87 ML/MIN (>60); Globulin 2.8 g/dL (1.3-3.2); Glucose 152 mg/dl (74-100); Sodium 135 mmol/L (136-145)
[2025-01-17 07:20] LABS: Anion Gap 10.8 mEq/L (5-15); Lipase 128 U/L (23-300); Magnesium 1.9 mg/dl (1.6-2.3); Potassium 3.8 mmoL/L (3.5-5.1)
[2025-01-17] MEDS: IOPAMIDOL-370 (76%);100ML BOTTLE 80 ML IV (07:29)
[2025-01-17] MEDS: SODIUM CHLORIDE 0.9% 10ML SYR (RAD ONLY) 10 ML IV (07:29)
[2025-01-17] MEDS: 0.9 % SODIUM CHLORIDE 50 ML VIAL IV (07:29)
[2025-01-17 07:36] LABS: Troponin I < 0.01 ng/ml (0.00-0.034)
--- NOTE | 2025-01-17 07:43 | PC.NURSE ---
Called [facility] per Dr. Collins for a transfer due to a concern for a stroke. [facility] is currently on the phone with Dr. Collins.
[2025-01-17 07:44] LABS: Lymphocytes % 63 % (10-50); Monocytes % 8 % (2-9); Neutrophils % 29 % (42-76); Platelet Estimate Normal; RBC Morphology Normal; Total Cells Counted 100
--- NOTE | 2025-01-17 08:11 | PC.NURSE ---
[facility] with [facility] is confirming with fighter pilot for acceptance of flight.
[2025-01-17] MEDS: TENECTEPLASE 50MG VIAL 18 MG IV (08:12)
--- NOTE | 2025-01-17 08:12 | PC.NURSE ---
Spoke with [facility] and pt will be going to ICU first. We will call back to speak to charge nurse about bed assignment [phone]
--- NOTE | 2025-01-17 08:18 | PC.NURSE ---
[facility] declined, calling air evac
[2025-01-17 08:21] LABS: HIV Combo NEGATIVE (Negative)
[2025-01-17 08:29] LABS: Hepatitis C Ab Qual. W/ RFX NEGATIVE (Negative)
--- NOTE | 2025-01-17 08:55 | PC.NURSE ---
Code stroke called AT 7:08, PT to CT @ 07:12
--- NOTE | 2025-01-17 09:02 | PC.NURSE ---
Called [facility]or [facility] to Sandy Campos RN. Returned to room to find pt more alert, repeated NIH score is 0 at this time.
--- NOTE | 2025-01-17 09:05 | PC.NURSE ---
[facility] here to get pt
--- NOTE | 2025-01-17 09:11 | PC.NURSE ---
report to [facility], pt family to take personal belongings.
[2025-01-17 09:24] LABS: Microscopic, Urine URINE MICROSCOPIC (MICROSCOPIC)
--- NOTE | 2025-01-17 09:27 | PC.NURSE ---
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
[2025-01-17 09:58] LABS: Appearance,Urine CLEAR (Clear); Bilirubin,Urine Negative (Negative); Blood, Urine TRACE-I (Negative); Color,Urine YELLOW (Yellow); Glucose,Urine (UA) 3+ (Negative); Ketones,Urine 2+ (Negative); Leukocyte Esterase,Urine Negative (Negative); Nitrate,Urine Negative (Negative); PH,Urine 5.5 (5.0-8.5); Protein,Urine Negative (Negative); Specific Gravity, Urine <= 1.005 (1.005-1.030); Urobilinogen,Urine 0.2 EU/dl (0.2)
[2025-01-17 10:26] LABS: RBC,Urine Occasional #/hpf (0-3)
== END 2025-01-17 09:28 | disposition short-term general hospital (02) ==
PROVIDERS: Emergency Provider Emergency Medicine; PCP Nurse Practitioner Family
DX: I63.9 Cerebral infarction, unspecified (principal); R29.705 NIHSS score 5; H55.09 Other forms of nystagmus; R11.2 Nausea with vomiting, unspecified; Z11.59 Encounter for screening for other viral diseases; Z11.4 Encounter for screening for human immunodeficiency virus [HIV]
CPT/HCPCS: 70450; 70496; 70498; 80053; 81001; 83690; 83735; 84484; 85007; 85025; 85027; 86803; 87389; 93005; 96361; 96374; 96375; 99291; J2405; J3101; J7120; Q9967

== ENCOUNTER 2025-01-21 19:29 | Emergency (ER) | payer SELFPAY ==
--- NOTE | 2025-01-21 19:29 | ECG_ITS ---
APPROVED REPORT Exam: Resting ECG HR:70 bpm ECG Measurements Heart Rate 70 AXES PA 152 P 30 QRSd 90 QRS 11 QT 363 T 22 QTc 384 Conclusion SINUS RHYTHM WITH SINUS ARRHYTHMIA NORMAL ECG UNCONFIRMED REPORT Electronically signed by : Shankar Silva, 01/23/2025 23:04:40
--- NOTE | 2025-01-21 19:35 | CT_ITS ---
PROCEDURE INFORMATION: Exam: CTA Head With Contrast, Arteriography Exam date and time: 01/21/2025 8:23 PM Age: 64 years old Clinical indication: Dizziness and giddiness; Additional info: Dizziness lightheadedness TECHNIQUE: Imaging protocol: Computed tomographic angiography of the head with contrast. Exam focused on the arteries. 3D rendering (Not supervised by radiologist): MIP and/or 3D reconstructed images were created by the technologist. Radiation optimization: All CT scans at this facility use at least one of these dose optimization techniques: automated exposure control; mA and/or kV adjustment per patient size (includes targeted exams where dose is matched to clinical indication); or iterative reconstruction. Contrast material: ISOVUE; Contrast volume: 80 ml; Contrast route: INTRAVENOUS (IV); COMPARISON: CT ANGIO HEAD 01/17/2025 7:17 AM FINDINGS: ANTERIOR CIRCULATION: Right internal carotid artery: Intracranial segment is patent with no significant stenosis. No aneurysm. Right middle cerebral artery: No occlusion or significant stenosis. No aneurysm. Right anterior cerebral artery: No occlusion or significant stenosis. No aneurysm. Left internal carotid artery: Intracranial segment is patent with no significant stenosis. No aneurysm. Left middle cerebral artery: No occlusion or significant stenosis. No aneurysm. Left anterior cerebral artery: No occlusion or significant stenosis. No aneurysm. POSTERIOR CIRCULATION: Right vertebral artery: No occlusion or significant stenosis. No aneurysm. Left vertebral artery: No occlusion or significant stenosis. No aneurysm. Basilar artery: No occlusion or significant stenosis. No aneurysm. Right posterior cerebral artery: No occlusion or significant stenosis. No aneurysm. Left posterior cerebral artery: origin. No occlusion or significant stenosis. No aneurysm. Brain: No definite mass, mass effect, or midline shift. Cerebral ventricles: No ventriculomegaly. Bones/joints: Unremarkable. No acute fracture. Soft tissues: Unremarkable. IMPRESSION: No large vessel stenosis or occlusion.
--- NOTE | 2025-01-21 19:35 | CT_ITS ---
PROCEDURE INFORMATION: Exam: CTA Neck With Contrast Exam date and time: 01/21/2025 8:23 PM Age: 64 years old Clinical indication: Dizziness and giddiness; Additional info: Dizziness lightheadedness TECHNIQUE: Imaging protocol: Computed tomographic angiography of the neck with contrast. Exam focused on the cervical segments of the vasculature. 3D rendering (Not supervised by radiologist): MIP and/or 3D reconstructed images were created by the technologist. Radiation optimization: All CT scans at this facility use at least one of these dose optimization techniques: automated exposure control; mA and/or kV adjustment per patient size (includes targeted exams where dose is matched to clinical indication); or iterative reconstruction. Contrast material: ISOVUE; Contrast volume: 80 ml; Contrast route: INTRAVENOUS (IV); COMPARISON: CT ANGIO NECK 01/17/2025 7:17 AM FINDINGS: Limitations: Motion artifact at the level of the carotid bifurcations. Right common carotid artery: No stenosis. No dissection or occlusion. Right internal carotid artery: No stenosis of the extracranial segment. No dissection or occlusion. Right external carotid artery: No occlusion or stenosis of the origin. Left common carotid artery: No stenosis. No dissection or occlusion. Left internal carotid artery: No stenosis of the extracranial segment. No dissection or occlusion. Left external carotid artery: No occlusion or stenosis of the origin. Right vertebral artery: No stenosis. No dissection or occlusion. Left vertebral artery: No stenosis. No dissection or occlusion. Soft tissues: Unremarkable. Bones/joints: No acute fracture. Degenerative changes. IMPRESSION: Motion artifact at the level of the carotid bifurcations. Within limits of the exam, no flow-limiting stenosis, occlusion, or dissection. REFERENCES: NASCET CRITERIA. The degree of stenosis in the cervical segment of the internal carotid artery is based on NASCET criteria. Normal is no stenosis. Mild is less than 50% stenosis. Moderate is 50-69% stenosis. Severe is 70% to 99% stenosis. Total occlusion is no detectable patent lumen.
--- NOTE | 2025-01-21 19:36 | CT_ITS ---
PROCEDURE INFORMATION: Exam: CT Head Without Contrast Exam date and time: 01/21/2025 8:21 PM Age: 64 years old Clinical indication: Dizziness; Additional info: Dizziness, lightheadedness TECHNIQUE: Imaging protocol: Computed tomography of the head without contrast. Radiation optimization: All CT scans at this facility use at least one of these dose optimization techniques: automated exposure control; mA and/or kV adjustment per patient size (includes targeted exams where dose is matched to clinical indication); or iterative reconstruction. COMPARISON: 1. CT ANGIO HEAD 01/17/2025 7:[address] HEAD/BRAIN WO CON 01/17/2025 7:14 AM FINDINGS: Brain: No intracranial hemorrhage. Mild atrophic changes of the ventricles and subarachnoid spaces. Mild chronic small-vessel ischemic changes noted. No mass, mass effect or midline shift. Intracranial atherosclerotic changes are noted. A small lacunar infarct noted in the left daphne on axial image 24 series 3 not seen with certainty on the previous CT but that area is partially obscured by artifact on previous CT. Cerebral ventricles: See Brain finding. Paranasal sinuses: Visualized sinuses are unremarkable. No fluid levels. Mastoid air cells: Visualized mastoid air cells are well aerated. Bones: Unremarkable. No acute fracture. Soft tissues: Unremarkable. IMPRESSION: 1. A potential lacunar infarct in the left daphne is now visible. This may be chronic and not clearly seen on the recent prior CT due to artifact. A developing subacute lacunar infarct can not be excluded. Consider further assessment with MRI scan. 2. Otherwise stable noncontrast CT brain with chronic changes. No other acute intracranial abnormality.
--- NOTE | 2025-01-21 19:38 | ED_ITS ---
<Statement entered by Jolene Silva MD - 01/21/25 23:36> I was consulted by the KAYLYN, and we discussed the complexity of the problems being addressed. I approved the treatment and management plan for this patient's care in the emergency department, thus performing a substantive portion of the medical decision making. Jolene Silva MD, MATTHIAS, FACEP Discharge Plan Disposition Chief Complaint: Weakness Prescriptions Prescriptions: No Action duloxetine [Cymbalta] 20 mg capsule,delayed release(DR/EC) 20 mg PO DAILY montelukast [Singulair] 10 mg tablet 10 mg PO DAILY cefdinir 300 mg capsule 300 mg PO BID Qty: 20 0RF benzonatate 100 mg capsule 100 mg PO BID PRN (Reason: cough) Qty: 20 0RF bupropion HCl [Wellbutrin SR] 150 mg Tablet Sustained-Release 12 Hr 150 mg PO DAILY fluticasone propionate 110 mcg/actuation Hfa Aerosol Inhaler 1 puff INHALATION BID atorvastatin 40 mg Tablet 40 mg PO HS Qty: 30 0RF carvedilol 3.125 mg Tablet 3.125 mg PO BID 30 Days Qty: 60 0RF Jardiance 10 mg Tablet 10 mg PO DAILY 30 Days Qty: 30 0RF spironolactone 25 mg Tablet 12.5 mg PO DAILY 30 Days Qty: 15 0RF Print Language Print Language: Latvian Discharge ED Provider: Jolene Silva General Adult HPI General Chief complaint: Weakness Stated complaint: Dizziness Time Seen by Provider: 01/21/25 19:35 History of Present Illness HPI narrative: Patient presents for evaluation of dizziness and lightheadedness. Patient reports that approximately 6:45 PM she was walking through the house and began feeling dizzy and lightheaded. Patient denies chest pain fever chills hemoptysis hematochezia melena nausea vomiting diarrhea. Of note patient had similar symptoms on Sunday of last week and ultimately was given TN K and transferred to [facility] for further workup. Patient's symptoms resolved while in the ER here and ultimately they did not find any evidence via MRI or CT at [facility] of acute stroke and discharged with a diagnosis of TIA. Currently on aspirin in addition to her statin. Symptoms are present currently at the time of our exam. Related Data Home Medications ?Medication ?Instructions ?Recorded ?Confirmed bupropion HCl 150 mg tablet,12 hr 150 mg PO DAILY 03/2111/22/24 sustained-release (Wellbutrin SR) fluticasone propionate 110 1 puff inhalation BID 04/1311/22/24 mcg/actuation HFA aerosol inhaler duloxetine 20 mg capsule,delayed 20 mg PO DAILY 11/22/24 release (Cymbalta) montelukast 10 mg tablet 10 mg PO DAILY 11/22/2401/11 (Singulair) Previous Rx's ?Medication ?Instructions ?Recorded atorvastatin 40 mg tablet 40 mg PO HS #30 tabs 4 carvedilol 3.125 mg tablet 3.125 mg PO BID 30 days #60 tabs 04/15/24 empagliflozin 10 mg tablet 10 mg PO DAILY 30 days #30 tabs 04/15/24 (Jardiance) spironolactone 25 mg tablet 12.5 mg (1/2 x 25 mg) PO D AILY 30 04/15/24 days #15 tabs benzonatate 100 mg capsule 100 mg PO BID PRN cough #20 caps 11/22/24 cefdinir 300 mg capsule 300 mg PO BID #20 caps 11/22 Allergies Allergy/AdvReac Type Severity Reaction Status Date / Time No Known Allergies Allergy Verified 11/22/24 12:04 [facility] Disclaimer: The information contained in this section may have been updated after the patient was seen, as this information can be updated by other users. 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[employer]: [employer] Have you lived/traveled outside [place] in past 30 days?: No Contact w/someone who lives/traveled outside US past 30 days?: No Exposure to someone with infectious disease in past 14 days?: No Do you have a fever (greater than 100.4 F or 38 C)?: No Have you tested positive for COVID-19?: No Exposed to someone with COVID-19 in past 14 days?: No Do you have a sore throat?: No Do you have a cough?: No Do you have any weakness?: No Do you have any diarrhea?: No Are you experiencing any unusual bleeding?: No Do you have any muscle aches/pain?: No Do you have any abdominal pain?: No Are you experiencing loss of taste or smell?: No Other Medical History Have you received the Flu Vaccine for this season: No Have you received the Pneumonia Vaccine: No ROS Obtained: Yes Systems reviewed as appropriate & no additional complaints except as documented Physical Exam General General appearance: alert and in no apparent distress Respiratory Respiratory exam: Present normal lung sounds bilaterally Cardiovascular Cardiovascular exam: Present regular rate Neurological Exam Neurological exam: Present alert, oriented X3, CN II-XII intact, normal gait and reflexes normal; Absent motor sensory deficit Expanded Neurological Exam Patient oriented to: Present person, place and time Speech: Present fluid speech Cranial nerves: Normal: EOM function (II, III, IV, ), facial sensation (V), facial palsy (VII), gag reflex (IX), spinal accessory function (XI) and tongue deviation (XII) Cerebellar function: Normal: finger to nose and heel to villanueva Cerebellar function: normal gait Motor strength - LUE: 4/5 Motor strength - RUE: 4/5 Motor strength - LLE: 4/5 Motor strength - RLE: 4/5 Upper motor neuron exam: Normal: scott neglect, pronator drift, Babinski sign and sensory extinction Sensory exam upper extremity: Normal: light touch Sensory exam lower extremity: Normal: light touch DTR: 2+: biceps (L), biceps (R), brachioradialis (L), brachioradialis (R), triceps (L), triceps (R), patellar (L), patellar (R), Achilles tendon (L) and Achilles tendon (R) Coma scale eye opening: Spontaneous Coma scale motor response: Obeys commands Coma scale verbal response: Oriented Coma scale total: 15 Medical Decision Making Medical Records Medical records reviewed: Yes I reviewed the patient's medical records. Screening: Per USPSTF and CDC recommendations, given the prevalence of disease in our region, it is our hospital?s policy to screen for HIV and viral Hepatitis for all patients aged 18 and over and those with ongoing risk factors. Adis Inquiry Pt receiving controlled substance: No Vital Signs: 01/21/25 19:40 01/21/25 20:30 01/21/25 21:00 Temperature 98.2 F Temperature Source Oral Pulse Rate 74 68 Pulse Rate [Right] 79 Respiratory Rate 18 17 12 Blood Pressure 123/59 L 101/45 L Blood Pressure [Right Arm] 156/68 H Blood Pressure Mean [Right Arm] 97 Blood Pressure Source Automatic Cuff Blood Pressure Source [Right Arm] Automatic Cuff Blood Pressure Position [Right Arm] Supine 02 Sat by Pulse Oximetry 95 99 97 Oxygen Delivery Method Room Air Room Air Lab Data Lab results reviewed: Yes I reviewed the patient's lab results. Lab Results 01/21/25 19:36: WBC 6.1, RBC 4.16 L, Hgb 13.4, Hct 38.7, MCV 93.0, MCH 32.2 H, MCHC 34.6, RDW 12.5, Plt Count 200, MPV 11.5 H, Neut % (Auto) 36.5 L, Lymph % (Auto) 48.4, [place] % (Auto) 12.3 H, Eos % (Auto) 0.5, Baso % (Auto) 1.6, Neut # (Auto) 2.2, Lymph # (Auto) 2.9, [place] # (Auto) 0.8, Eos # (Auto) 0.0, Baso # (Auto) 0.1, ESR 13, D-Dimer 0.49, Sodium 138, Potassium 3.9, Chloride 104, Carbon Dioxide 29, Anion Gap 8.9, BUN 13, Creatinine 0.70, Estimated Creat Clear 53, Estimated GFR 84, Est GFR ( Amer) 102, Glucose 119 H, Calcium 9.2, Magnesium 2.2, Total Bilirubin 0.4, AST 40 H, ALT 26, Alkaline Phosphatase 80, Troponin I < 0.01, C-Reactive Protein < 0.3, Total Protein 7.3, Albumin 4.3, Globulin 3.0, Albumin/Globulin Ratio 1.4 01/21/25 19:36 01/21/25 19:36 Orders (Tests/Meds): ED MEDICATIONS Discontinued Medications Generic Name Dose Route Start Last Admin Trade Name Simeon PRN Reason Stop Dose Admin Acetaminophen 1,000 mg 01/21/25 19:35 01/21/25 19:58 Acetaminophen 500mg Tab PO 01/21/25 19:36 1,000 mg ONCE ONE Administration Sodium Chloride 1,000 mls @ 999 mls/hr 01/21/25 19:35 01/21/25 19:58 Sod Chlor 0.9% 1000ml Bag IV 01/21/25 20:35 999 mls/hr .Q1H1M ONE Administration Iopamidol 80 ml 01/21/25 20:25 01/21/25 20:26 Iopamidol-370 (76%);100ml Bottle IV 01/21/25 20:26 80 ml ONCE ONE Administration Meclizine HCl 25 mg 01/21/25 19:35 01/21/25 19:58 Meclizine 25mg Tablet PO 01/21/25 19:36 25 mg ONCE ONE Administration Sodium Chloride 50 ml 01/21/25 20:25 01/21/25 20:26 0.9 % Sodium Chloride 50 Ml Vial IV 01/21/25 20:26 50 ml ONCE ONE Administration Sodium Chloride 10 ml 01/21/25 20:25 01/21/25 20:26 Sodium Chloride 0.9% 10ml Syr (Rad Only) IV 01/21/25 20:26 10 ml ONCE ONE Administration ORDERS Category Date Time Status CT angio head Stat Cat Scan 01/21/25 19:[address] angio neck Stat Cat Scan 01/21/25 19:[address] head/brain wo con Stat Cat Scan 01/21/25 19:36 Completed CBC w/Auto Diff [Complete Blood Count Auto Diff] Stat Lab 01/21/25 19:36 Completed CMP [Comprehensive Metabolic Panel] Stat Lab 01/21/25 19:36 Completed CRP [C-Reactive Protein] Stat Lab 01/21/25 19:36 Completed D-Dimer Stat Lab 01/21/25 19:36 Completed ESR [Erythrocyte Sedimentation Rate] Stat Lab 01/21/25 19:36 Completed Magnesium Stat Lab 01/21/25 19:36 Completed Thyroid Panel Stat Lab 01/21/25 19:36 Received Trop I [Troponin I] Stat Lab 01/21/25 19:36 Completed Troponin I Q3H Lab 01/21/25 22:45 Ordered Troponin I Q3H Lab 01/22/25 01:45 Ordered Medical Decision Narrative: In summary patient is a 64-year-old female who presents to the emergency department for evaluation of dizziness and lightheadedness. Patient is hemodynamically stable with a blood pressure 156/68 pulse of 79 with normal sinus rhythm the bedside monitor breathing 18 times a minute satting at 95% on room air upon arrival, afebrile at 98.2. Physical exam is unremarkable nonfocal including totally normal neurologic exam documented above patient is awake alert and oriented person place and circumstance pupils equal round reactive to light without nystagmus patient has normal sensory and motor movement and is ambulatory in the ER without ataxia.. Differential diagnosis includes TIA versus peripheral vertigo versus arrhythmia versus ACS versus stroke etc. Initial workup will be conducted with hematologic labs CT of the head without contrast CTA of the head and neck twelve-lead EKG. Initial interventions include crystalloid bolus and meclizine. Initial workup reviewed by me shows her hematologic labs significant for normal white count H&H are normal no neutrophilic shift, the remainder of her hematologic labs are nonactionable including a negative troponin normal CRP and sed rate formal interpretation of her imaging shows no acute intracranial process large vessel occlusion or stroke or bleed prior to radiology read. Radiology read sees a small lacunar infarct in the left daphne that was not seen on the previous imaging likely due to to motion artifact but acuity is undetermined. Upon repeat evaluation patient has had complete resolution of her symptoms after meclizine and shared decision making discussion was held with the patient regarding her presentation [facility] and findings and while she may have a lacunar infarct that was not seen previously it is not consistent with the territory of her symptoms would have been a posterior stroke or infarct. Verbalized understanding and agreement.. Given this as patient is asymptomatic plan will be to discharge the patient with a prescription for meclizine she already has an appointment scheduled with ear nose and throat and cardiology as well as neurology at [facility]. I advised her should she develop any persistent new or worsening signs or symptoms to follow-up with the specialist or return to the ER as needed. Patient verbalized understanding and agreement. Critical Care Critical Care Time Critical Care Time: Yes Attestation: On 01/21/25, the high probability of a clinically significant, sudden or life threatening deterioration of the following system(s) required my full and direct attention, intervention and personal management. The time I documented below is in addition to time spent performing reported procedures but includes the following listed in this critical care notation. Total Time Total Critical Care Time: 30
[2025-01-21 19:40] VITALS: BP 156/68; PULSE 79; RESP 18; TEMP 36.8; O2SAT 95; BMI 22.3
[2025-01-21 19:56] LABS: Basophils # 0.1 K/mm3 (0-0.2); Basophils % 1.6 % (0.1-2.0); Eosinophils % 0.5 % (0.1-12.0); Hematocrit 38.7 % (37.0-47.0); Hemoglobin 13.4 g/dL (12.2-16.2); Immature Granulocytes # 0.04 10^3uL; Immature Granulocytes % 0.7 %; Lymphocytes # 2.9 K/mm3 (0.7-4.5); Lymphocytes % 48.4 % (10-50); Mean Corpuscular HGB Conc 34.6 g/dL (31.8-35.4); Mean Corpuscular Hemoglobin 32.2 pg (27.0-31.2); Mean Platelet Volume 11.5 fl (7.4-10.4); Monocytes # 0.8 K/mm3 (0.1-1.0); Monocytes % 12.3 % (1.7-9.3); Neutrophils # 2.2 K/mm3 (1.8-7.8); Neutrophils % 36.5 % (37.0-80.0); Nucleated Red Blood Cells # 0 10^3/uL; Nucleated Red Blood Cells % 0 %; Platelet Count 200 K/mm3 (142-424); Red Blood Count 4.16 M/mm3 (4.20-5.40); Red Cell Distribution Width 12.5 % (11.5-17.5); Red Cell Distribution Width-SD 42.7 fL; White Blood Count 6.1 K/mm3 (4.8-10.8)
[2025-01-21] MEDS: ACETAMINOPHEN 500MG TAB 1000 MG PO (19:58)
[2025-01-21] MEDS: 0.9 % SODIUM CHLORIDE 1000ML 1,000 ML 999 ML IV (19:58)
[2025-01-21] MEDS: MECLIZINE 25MG TABLET 25 MG PO (19:58)
[2025-01-21 20:02] LABS: Magnesium 2.2 mg/dl (1.6-2.3)
[2025-01-21 20:03] LABS: Alanine Aminotransferase 26 U/L (12-78); Albumin Level 4.3 g/dl (3.5-5.0); Albumin/Globulin Ratio 1.4 (1.1-1.8); Alkaline Phosphatase 80 U/L (38-126); Anion Gap 8.9 mEq/L (5-15); Aspartate Amino Transferase 40 U/L (14-36); Bilirubin,Total 0.4 mg/dl (0.2-1.3); Blood Urea Nitrogen 13 mg/dl (7-17); Calcium 9.2 mg/dl (8.4-10.2); Carbon Dioxide 29 mmol/L (22.0-30.0); Chloride 104 mmol/L (98-107); Creatinine Clearance Estimated 53 mL/min (50-200); Estimated Glomerular Filt Rate 84 ml/min (>60); GFR (African American) 102 ML/MIN (>60); Glucose 119 mg/dl (74-100); Potassium 3.9 mmoL/L (3.5-5.1); Sodium 138 mmol/L (136-145); Total Protein,Serum 7.3 g/dl (6.3-8.2)
[2025-01-21 20:12] LABS: D-Dimer 0.49 ug/mL (0.0-0.5)
[2025-01-21] MEDS: IOPAMIDOL-370 (76%);100ML BOTTLE 80 ML IV (20:26)
[2025-01-21] MEDS: 0.9 % SODIUM CHLORIDE 50 ML VIAL IV (20:26)
[2025-01-21] MEDS: SODIUM CHLORIDE 0.9% 10ML SYR (RAD ONLY) 10 ML IV (20:26)
[2025-01-21 20:28] LABS: Erythrocyte Sedimentation Rate 13 mm/hr (0-30)
[2025-01-21 20:30] VITALS: BP 123/59; PULSE 74; RESP 17; O2SAT 99
[2025-01-21 20:35] LABS: C-Reactive Protein < 0.3 mg/L (0-4); Troponin I < 0.01 ng/ml (0.00-0.034)
[2025-01-21 21:00] VITALS: BP 101/45; PULSE 68; RESP 12; O2SAT 97
[2025-01-21 21:41] VITALS: BP 117/79; PULSE 86; RESP 20; TEMP 36.7; O2SAT 100
[2025-01-21 21:41] LABS: Free Thyroxine Index 2.4 ug/dL (5.93-13.13); T4 (Thyroxine) 6.8 ug/dl (5.53-11.0); Triiodothryronine (T3) Uptake 36 % (23.5-40.5)
--- NOTE | 2025-01-21 21:43 | PC.NURSE ---
IV discontinued. catheter tip intact. Bleeding controlled.
[2025-01-21 21:55] LABS: Thyroid Stimulating Hormone 9.91 uIU/mL (0.465-4.68)
== END 2025-01-21 21:43 | disposition home or self-care (01) ==
PROVIDERS: Physician Assistant; Emergency Provider Student in an Organized Health Care Education/Training Program
DX: R42 Dizziness and giddiness (principal); R94.6 Abnormal results of thyroid function studies
CPT/HCPCS: 70450; 70496; 70498; 80053; 83735; 84436; 84443; 84479; 84484; 85025; 85378; 85651; 86140; 93005; 96360; 99285; J7030; Q9967